=== PATIENT | male | born 1990 | race Caucasian/White ===

== ENCOUNTER 2016-08-12 11:10 | Emergency (ER) | payer OTHER ==
[2016-08-12 11:27] VITALS: TEMP 98
[2016-08-12] MEDS ORDERED: MAGNESIUM HYDROXIDE 30 ML UD PO ONE (12:02)
--- NOTE | 2016-08-12 12:06 | ED.PDOC ---
History of Present Illness - General Chief Complaint: Abdominal Pain Stated Complaint: abd pain Time Seen by Provider: 08/12/16 11:11 Source: patient Exam Limitations: no limitations - History of Present Illness Initial Comments: the patient is a 26-year-old male presenting to the emergency room secondary toperiumbilical abdominal pain that radiates to his left upper quadrant posteriorly. His left flank. No urinary symptoms. No nausea or vomiting. He has had some significant constipation issues recently. No fever. No headache. No sore throat. No shortness of breath or pulmonary symptoms. Timing/Duration: 24 hours Severity: moderate Improving Factors: nothing Worsening Factors: nothing Associated Symptoms: malaise Allergies/Adverse Reactions: Allergies NO KNOWN ALLERGY Allergy (Verified 08/12/16 11:22) Review of Systems - Review of Systems Constitutional: States: no symptoms reported EENTM: States: no symptoms reported Respiratory: States: no symptoms reported Cardiology: States: no symptoms reported Gastrointestinal/Abdominal: States: see HPI Genitourinary: States: no symptoms reported Musculoskeletal: States: no symptoms reported, back pain Skin: States: no symptoms reported Neurological: States: no symptoms reported Endocrine: States: no symptoms reported All other Systems: No Change from Baseline Past Medical History (General) - Patient Medical History Hx Seizures: Yes - 1.5 yrs ago said to be caused by maoi medication Hx Stroke: No Hx Dementia: No Hx Asthma: No Hx of COPD: No Hx Cardiac Disorders: No Hx Congestive Heart Failure: No Hx Pacemaker: No Hx Hypertension: No Hx Thyroid Disease: No Hx Diabetes: No Hx Gastroesophageal Reflux: Yes Hx Renal Disease: No Hx Cancer: No Hx of HIV: No Hx Hepatitis C: No Hx MRSA: No Surgical History: appendectomy - Vaccination History Hx Tetanus, Diphtheria Vaccination: Yes Hx Influenza Vaccination: No Hx Pneumococcal Vaccination: No Immunizations Up to Date: No - Social History Hx Tobacco Use: Yes Hx Alcohol Use: No Hx Substance Use: Yes Hx Substance Use Treatment: No Hx Depression: Yes - Prozac, xanax Hx Physical Abuse: No Hx Emotional Abuse: No Hx Suspected Abuse: No - Female History Patient : No Family Medical History - Family History Mother Family History: Unknown Physical Exam - Physical Exam General Appearance: Alert, Comfortable, No apparent distress Eye Exam: bilateral normal Ears, Nose, Throat: normal ENT inspection, normal pharynx Neck: full range of motion, supple, normal inspection Respiratory: chest non-tender, lungs clear, normal breath sounds, no respiratory distress, no accessory muscle use Cardiovascular/Chest: normal peripheral pulses, regular rate, rhythm, no edema Peripheral Pulses: radial,right: 2+, radial,left: 2+ Gastrointestinal/Abdominal: non tender, soft Rectal Exam: deferred Back Exam: normal inspection, no CVA tenderness, no vertebral tenderness Extremity: normal range of motion, non-tender, normal inspection, no pedal edema , normal capillary refill Neurologic: alert, normal mood/affect, oriented x 3 Skin Exam: normal color Comments: Vital Signs - 24 hr 08/12/16 11:22 Temperature 98.0 F Pulse Rate [ 92 H monitor] Respiratory 20 Rate Blood Pressure 131/83 [LARM] O2 Sat by Pulse 97 Oximetry Progress - Progress Progress: 08/12/16 12:04 the patient is a 26-year-old male presenting with abdominal and back pain. Urinalysis is clear. X-ray is consistent with constipation. He was given a dose of milk of magnesia here. He needs to take MiraLAX daily for the next week and then as needed. He needs to increase his fluid intake. He needs to increase his fiber intake. He needs to be active and move around in order to stimulate his bowel function. He needs to follow up with his primary care doctor towards the end of the week. ER warnings are given for any acute worsening. If the milk of magnesia is not getting him cleaned out then he can take a dose of [place] oil. Departure - Departure Clinical Impression: Constipation Qualifiers: Constipation type: unspecified constipation type Qualifier Code: (K59.00) Constipation, unspecified Disposition: Discharge to Home or Self Care Condition: Fair Departure Forms: ED Discharge - Pt. Copy, Patient Portal Self Enrollment Instructions: DI for Abdominal Pain-Adult Diet: other - high fiber Activity: increase activity as tolerated Referrals: CHAPITO SANABRIA [Primary Care Provider] - 1-2 Weeks Additional Instructions: the patient is a 26-year-old male presenting with abdominal and back pain. Urinalysis is clear. X-ray is consistent with constipation. He was given a dose of milk of magnesia here. He needs to take MiraLAX daily for the next week and then as needed. He needs to increase his fluid intake. He needs to increase his fiber intake. He needs to be active and move around in order to stimulate his bowel function. He needs to follow up with his primary care doctor towards the end of the week. ER warnings are given for any acute worsening. If the milk of magnesia is not getting him cleaned out then he can take a dose of [place] oil.
[2016-08-12 12:25] VITALS: BP 128/76; O2SAT 98
--- NOTE | 2016-08-12 12:30 | RAD ---
EXAM DESCRIPTION: XR ABDOMEN 2 VIEWS SUPINE ERECT CLINICAL HISTORY: abd pain COMPARISON: Chest x-ray August 22, 2011 FINDINGS: AP supine and upright views of the abdomen show a nonspecific, nonobstructive bowel gas pattern with no evidence for free intraperitoneal air. Surgical clips in the right mid abdomen are seen. No air-filled dilated loops of small bowel are seen. No significant air-fluid levels are identified. No obvious organomegaly is seen. No abnormal calcifications are seen in the expected location of the renal collecting systems. Single view of the chest shows cardiac silhouette and pulmonary vasculature to be within normal limits. Lungs are normally aerated and clear. IMPRESSION: Nonspecific abdominal series. Electronically signed by: Sami Mcfadden MD 08/12/2016 12:28
== END 2016-08-12 12:24 | disposition home or self-care (01) ==
LOC: ER 11:10
DX: K59.00 Constipation, unspecified (principal); K21.9 Gastro-esophageal reflux disease without esophagitis; F32.9 Major depressive disorder, single episode, unspecified; Z79.899 Other long term (current) drug therapy; Z87.891 Personal history of nicotine dependence

== ENCOUNTER 2016-08-28 20:02 | Emergency (ER) | payer OTHER ==
[2016-08-28] MEDS ORDERED: predniSONE 20 MG TAB PO ONE (21:19)
[2016-08-28] MEDS ORDERED: KETOROLAC TROMETHAMINE INJ 30 MG/ML VIAL IM ONE (21:19)
[2016-08-28] MEDS ORDERED: CYCLOBENZAPRINE HCL 10 MG TAB PO ONE (21:20)
--- NOTE | 2016-08-28 21:22 | ED.PDOC ---
History of Present Illness - General Chief Complaint: Back Pain or Injury Stated Complaint: mid to lower back pain and spasms Time Seen by Provider: 08/28/16 21:19 Source: patient Exam Limitations: no limitations - History of Present Illness Initial Comments: The patient is a 26-year-old male presenting to the emergency room secondary to upper back pain adjacent to approximately T7 immediately to the left of the spine. He has had intermittent discomfort here over the years. No recent trauma. He woke up this morning with it hurting more than normal. No deformity. No radicular symptoms. No shortness of breath or chest pain otherwise. Timing/Duration: 24 hours Severity: moderate Improving Factors: nothing Worsening Factors: nothing Associated Symptoms: denies symptoms Allergies/Adverse Reactions: Allergies NO KNOWN ALLERGY Allergy (Verified 08/28/16 20:17) Home Medications: Ambulatory Orders Cyclobenzaprine HCl [Flexeril] 5 mg PO TID PRN #30 tab 08/28/16 predniSONE [Prednisone] 20 mg PO DAILY #5 tab 08/28/16 Review of Systems - Review of Systems Constitutional: States: no symptoms reported EENTM: States: no symptoms reported Respiratory: States: no symptoms reported Cardiology: States: no symptoms reported Gastrointestinal/Abdominal: States: no symptoms reported Genitourinary: States: no symptoms reported Musculoskeletal: States: back pain Skin: States: no symptoms reported Neurological: States: no symptoms reported Endocrine: States: no symptoms reported All other Systems: No Change from Baseline Past Medical History (General) - Patient Medical History Hx Seizures: Yes - 1.5 yrs ago said to be caused by maoi medication Hx Stroke: No Hx Dementia: No Hx Asthma: No Hx of COPD: No Hx Cardiac Disorders: No Hx Congestive Heart Failure: No Hx Pacemaker: No Hx Hypertension: No Hx Thyroid Disease: No Hx Diabetes: No Hx Gastroesophageal Reflux: Yes Hx Renal Disease: No Hx Cancer: No Hx of HIV: No Hx Hepatitis C: No Hx MRSA: No Surgical History: appendectomy - Vaccination History Hx Tetanus, Diphtheria Vaccination: Yes Hx Influenza Vaccination: No Hx Pneumococcal Vaccination: No - Social History Hx Tobacco Use: Yes Hx Alcohol Use: No Hx Substance Use: Yes Hx Substance Use Treatment: No Hx Depression: Yes - Prozac, xanax Hx Physical Abuse: No Hx Emotional Abuse: No Hx Suspected Abuse: No - Activities of Daily Living Hospice Agency (if applicable):: None - Female History Patient : No Family Medical History - Family History Mother Family History: Unknown Physical Exam - Physical Exam General Appearance: Alert, Comfortable, No apparent distress Eye Exam: bilateral normal Ears, Nose, Throat: normal ENT inspection, normal pharynx Neck: non-tender, full range of motion, supple Respiratory: chest non-tender, lungs clear, normal breath sounds, no respiratory distress Cardiovascular/Chest: normal peripheral pulses, regular rate, rhythm, no edema Peripheral Pulses: radial,right: 2+, radial,left: 2+ Rectal Exam: deferred Back Exam: no vertebral tenderness, other - see history of present illness. No deformity. There is some muscle spasm. No bruising. No step-off. Extremity: normal range of motion, non-tender, normal inspection, no pedal edema , normal capillary refill Neurologic: no motor/sensory deficits, alert, normal mood/affect, oriented x 3 Skin Exam: normal color Comments: Vital Signs - 24 hr 08/28/16 20:18 Temperature 98.5 F Pulse Rate [ 93 H left] Respiratory 18 Rate Blood Pressure 143/91 [left] O2 Sat by Pulse 100 Oximetry Progress - Progress Progress: 08/28/16 21:22 the patient is a 26-year-old male presenting with paraspinal muscle spasm adjacent to the left side of the spinous process of T6. The patient has had some recurrent discomfort in this area in the past. The patient was given anti-inflammatories in the form of a dose of oral prednisone and IM Toradol. He is given a dose for muscle relaxer in the form of Flexeril. He'll be written for a prescription for oral prednisone and Flexeril for 5 days. ER warnings are given for any acute worsening. A chiropractor may be of some benefit in reducing his chronic discomfort in this area. He needs to follow-up with his primary care doctor in the coming weeks. Topical heat in the form of a heat pad or icy hot or Biofreeze may also prove beneficial. Stretching may also help. Departure - Departure Clinical Impression: Strain of thoracic paraspinal muscles excluding T1 and T2 levels Qualifiers: Encounter type: initial encounter Qualifier Code: (S29.012A) Strain of muscle and tendon of back wall of thorax, initial encounter Disposition: Discharge to Home or Self Care Condition: Fair Departure Forms: ED Discharge - Pt. Copy, Patient Portal Self Enrollment Diet: regular diet Activity: increase activity as tolerated Referrals: Juan Carlos Ayala MD [Primary Care Provider] - 1-2 Weeks Prescriptions: Cyclobenzaprine HCl [Flexeril] 5 mg PO TID PRN #30 tab PRN Reason: Muscle Spasms predniSONE [Prednisone] 20 mg PO DAILY #5 tab Home Medications: Ambulatory Orders Cyclobenzaprine HCl [Flexeril] 5 mg PO TID PRN #30 tab 08/28/16 predniSONE [Prednisone] 20 mg PO DAILY #5 tab 08/28/16 Additional Instructions: the patient is a 26-year-old male presenting with paraspinal muscle spasm adjacent to the left side of the spinous process of T6. The patient has had some recurrent discomfort in this area in the past. The patient was given anti-inflammatories in the form of a dose of oral prednisone and IM Toradol. He is given a dose for muscle relaxer in the form of Flexeril. He'll be written for a prescription for oral prednisone and Flexeril for 5 days. ER warnings are given for any acute worsening. A chiropractor may be of some benefit in reducing his chronic discomfort in this area. He needs to follow-up with his primary care doctor in the coming weeks. Topical heat in the form of a heat pad or icy hot or Biofreeze may also prove beneficial. Stretching may also help.
[2016-08-28 21:54] VITALS: BP 142/81; TEMP 97.9; O2SAT 96
== END 2016-08-28 21:54 | disposition home or self-care (01) ==
LOC: ER 20:02
DX: S29.012A Strain of muscle and tendon of back wall of thorax, initial encounter (principal); K21.9 Gastro-esophageal reflux disease without esophagitis; F32.9 Major depressive disorder, single episode, unspecified; Z87.891 Personal history of nicotine dependence; Z79.899 Other long term (current) drug therapy; X58.XXXA Exposure to other specified factors, initial encounter
CPT/HCPCS: J1885; J7512

== ENCOUNTER 2016-09-07 15:12 | Emergency (ER) | payer OTHER ==
[~2016-09-07 15:12] MED LIST: SORBITOL 70 % 30 ML UD PO ONE
[2016-09-07 15:22] VITALS: TEMP 98
--- NOTE | 2016-09-07 15:23 | ED.PDOC ---
History of Present Illness - General Chief Complaint: General Stated Complaint: accidental OD Time Seen by Provider: 09/07/16 15:20 Source: patient, RN notes reviewed, Vital Signs reviewed Exam Limitations: no limitations Additional Information: Pt reports he took 4 of his 's Bystolic 10 mg tabs thinking it was motrin since the bottle looked similar to his bottle of motrin. He reports feeling a little tired and "off" since taking this medicine. He denies taking any other medicine/drugs/substances to include alcohol. - History of Present Illness Timing/Duration: other - about 15 minutes prior to arrival Improving Factors: nothing Worsening Factors: nothing Associated Symptoms: weakness Allergies/Adverse Reactions: Allergies NO KNOWN ALLERGY Allergy (Verified 08/28/16 20:17) Home Medications: Ambulatory Orders Cyclobenzaprine HCl [Flexeril] 5 mg PO TID PRN #30 tab 08/28/16 Review of Systems - Review of Systems Constitutional: States: weakness EENTM: States: no symptoms reported Respiratory: States: no symptoms reported Cardiology: States: no symptoms reported Gastrointestinal/Abdominal: States: no symptoms reported Genitourinary: States: no symptoms reported Musculoskeletal: States: no symptoms reported Skin: States: no symptoms reported Neurological: States: weakness Endocrine: States: no symptoms reported Hematologic/Lymphatic: States: no symptoms reported Past Medical History (General) - Patient Medical History Hx Seizures: Yes - 1.5 yrs ago said to be caused by maoi medication Hx Stroke: No Hx Dementia: No Hx Asthma: No Hx of COPD: No Hx Cardiac Disorders: No Hx Congestive Heart Failure: No Hx Pacemaker: No Hx Hypertension: No Hx Thyroid Disease: No Hx Diabetes: No Hx Gastroesophageal Reflux: Yes Hx Renal Disease: No Hx Cancer: No Hx of HIV: No Hx Hepatitis C: No Hx MRSA: No Surgical History: appendectomy - Vaccination History Hx Tetanus, Diphtheria Vaccination: Yes Hx Influenza Vaccination: No Hx Pneumococcal Vaccination: No - Social History Hx Tobacco Use: Yes Hx Alcohol Use: No Hx Substance Use: Yes Hx Substance Use Treatment: No Hx Depression: Yes - Prozac, xanax Hx Physical Abuse: No Hx Emotional Abuse: No Hx Suspected Abuse: No - Female History Patient : No Family Medical History - Family History Mother Family History: Unknown Physical Exam - Physical Exam General Appearance: Alert, Comfortable, No apparent distress, Well Developed, Well Groomed, Well Hydrated, Well Nourished Eye Exam: bilateral normal Ears, Nose, Throat: hearing grossly normal, normal ENT inspection, normal pharynx Neck: non-tender, full range of motion, supple, normal inspection Respiratory: normal breath sounds, no respiratory distress, no accessory muscle use Cardiovascular/Chest: regular rate, rhythm Gastrointestinal/Abdominal: non tender, soft Back Exam: normal inspection Extremity: normal range of motion, non-tender, normal inspection Neurologic: manager french II-XII nml as tested, no motor/sensory deficits, alert, normal mood/affect, oriented x 3 Skin Exam: normal color Progress - Progress Progress: 09/07/16 15:50 Per guidance from poison control, Pt prescribed activated charcoal and observed. Pt expected to tolerate this well given the reported dosage and quantity ingested is within the usual prescribed dose range. 09/07/16 16:26 No deleterious effects seen during observation. Pt tolerated charcoal well. Pt ok to be discharged home with strict return precautions. Departure - Departure Clinical Impression: Accidental drug ingestion Qualifiers: Encounter type: initial encounter Qualifier Code: (T50.901A) Poisoning by unspecified drugs, medicaments and biological substances, accidental ( unintentional), initial encounter Time of Disposition: 16:30 Disposition: Discharge to Home or Self Care Condition: Good Departure Forms: ED Discharge - Pt. Copy, Patient Portal Self Enrollment Instructions: DI for Accidental Ingestion -- Adult Referrals: Juan Carlos Ayala MD [Primary Care Provider] - 1-2 Weeks Home Medications: Ambulatory Orders Cyclobenzaprine HCl [Flexeril] 5 mg PO TID PRN #30 tab 08/28/16 Additional Instructions: Rest for rest of the day. Stay well hydrated. Return to ER if condition worsens. Expect dark stools due to the charcoal.
[2016-09-07] MEDS ORDERED: ACTIVATED CHARCOAL PELLETS 25 GM BTTL PO ONE (15:40)
[2016-09-07] MEDS ORDERED: SORBITOL 70 % 30 ML UD ONE (15:42)
[2016-09-07 16:48] VITALS: BP 121/80; O2SAT 97
== END 2016-09-07 16:47 | disposition home or self-care (01) ==
LOC: ER 15:12
DX: T44.7X1A Poisoning by beta-adrenoreceptor antagonists, accidental (unintentional), initial encounter (principal); R53.1 Weakness; K21.9 Gastro-esophageal reflux disease without esophagitis; Z87.891 Personal history of nicotine dependence

== ENCOUNTER 2016-09-07 18:28 | Emergency (ER) | payer OTHER ==
[2016-09-07] MEDS ORDERED: diazePAM 5 MG TAB PO ONE (18:34)
--- NOTE | 2016-09-07 18:58 | ED.PDOC ---
History of Present Illness - General Chief Complaint: Laceration Stated Complaint: right hand laceration Time Seen by Provider: 09/07/16 18:34 Source: patient, family Exam Limitations: no limitations Additional Information: Seen earlier today for alleged accidental ingestion of his 's 4 beta- elizabet tablets. He was given activated charcoal, observed and discharged home. When he was home he supposedly got upset and punched the microwave leading to lacerations of his right hand. Pt agitated, tearful, and anxious at the time of check-in. He presented with his . - History of Present Illness Occurred: just prior to arrival Pain - Upper Extremity: moderate: Hand, right - punched microwave; lacerations to 3rd, 4th, 5th knuckles Method of Injury: direct blow Improving Factors: nothing Worsening Factors: rest Allergies/Adverse Reactions: Allergies NO KNOWN ALLERGY Allergy (Verified 08/28/16 20:17) Home Medications: Ambulatory Orders None 09/07/16 Review of Systems - Review of Systems Constitutional: States: no symptoms reported EENTM: States: no symptoms reported Respiratory: States: no symptoms reported Cardiology: States: no symptoms reported Gastrointestinal/Abdominal: States: no symptoms reported Genitourinary: States: no symptoms reported Musculoskeletal: States: see HPI Skin: States: see HPI - lacerations to right hand knuckles dorsal surface Neurological: States: no symptoms reported Endocrine: States: no symptoms reported Hematologic/Lymphatic: States: no symptoms reported Past Medical History (General) - Patient Medical History Hx Seizures: Yes - 1.5 yrs ago said to be caused by maoi medication Hx Stroke: No Hx Dementia: No Hx Asthma: No Hx of COPD: No Hx Cardiac Disorders: No Hx Congestive Heart Failure: No Hx Pacemaker: No Hx Hypertension: No Hx Thyroid Disease: No Hx Diabetes: No Hx Gastroesophageal Reflux: Yes Hx Renal Disease: No Hx Cancer: No Hx of HIV: No Hx Hepatitis C: No Hx MRSA: No - Vaccination History Hx Tetanus, Diphtheria Vaccination: Yes Hx Influenza Vaccination: No Hx Pneumococcal Vaccination: No - Social History Hx Tobacco Use: Yes Hx Alcohol Use: No Hx Substance Use: Yes Hx Substance Use Treatment: No Hx Depression: Yes - Prozac, xanax Hx Physical Abuse: No Hx Emotional Abuse: No Hx Suspected Abuse: No - Female History Patient : No Family Medical History - Family History Mother Family History: Unknown Physical Exam - Physical Exam General Appearance: Anxious - improved after Valium 5 mg po x 1, Well Developed , Well Groomed, Well Hydrated, Well Nourished Eyes, Ears, Nose, Throat Exam: PERRL/EOMI Neck: non-tender, full range of motion, supple Cardiovascular/Respiratory: normal peripheral pulses, normal breath sounds, no respiratory distress Back Exam: normal inspection Wrist Exam: normal inspection, non-tender, no evidence of injury, normal ROM Hand Exam: laceration, soft tissue tenderness - at site of lacerations Neuro/Tendon: normal sensation, normal motor functions, responds to pain, no evidence tendon injury Mental Status: alert, oriented x 3 Skin Exam: other - 3 wounds to dorsal surface of right hand located at 3rd, 4th , 5th knuckles Progress - Progress Progress: 09/07/16 21:35 Wound soaked and irrigated as well as local anesthesia provided. See laceration note for details. In summary, 4th knuckle avulsion reapproximated. 3rd and 5th knuckle wounds complex and unable to be reapproximated - will heal by secondary intention. Pt ok to be discharged home with strict follow-up precautions given. Procedures - Laceration/Wound Repair Right Posterior Dorsal Hand Wound's Depth, Shape: irregular, flap Wound Explored: foreign body removed - fragments of glass Irrigated w/ Saline (cc's): 250 Betadine Prep?: Yes Anesthesia: 1% Lidocaine Volume Anesthetic (cc's): 12 Wound Debrided: moderate Wound Repaired With: sutures Suture Size/Type: 5:0, vicryl rapide - for lesion over 4th knuckle Number of Sutures: 5 - interrupted Departure - Departure Clinical Impression: Laceration of hand Qualifiers: Encounter type: initial encounter Laterality: right Qualifier Code: (S61.411A) Laceration without foreign body of right hand, initial encounter Time of Disposition: 21:10 Disposition: Discharge to Home or Self Care Condition: Good Instructions: DI for Avulsion Laceration (Not Requiring Sutures) Home Medications: Ambulatory Orders None 09/07/16 Additional Instructions: Keep wound clean and dry. Soak in warm soapy water for 5 to 10 minutes three times a day. Apply antibiotic ointment to wounds and cover with band-aid. Keep wounds clean and dry. Return to ER if condition worsens. No work for 48 hours.
[2016-09-07] MEDS ORDERED: POVIDONE IODINE 10 % 15 ML UD TOP ONE ×2 (19:01→20:09)
[2016-09-07] MEDS ORDERED: LIDOCAINE 1% W/ EPINEPHRINE 20 ML VIAL INJ ONE (19:49)
--- NOTE | 2016-09-07 19:57 | RAD ---
EXAM DESCRIPTION: Hand,Right 2 Views CLINICAL HISTORY: 26 years, Male, punched a microwave. Laceration over dorsal hand. COMPARISON: None. FINDINGS: There is no acute fracture or dislocation. The bony alignment is normal. There is a soft tissue laceration along the dorsal aspect of the metacarpophalangeal joints. There are at least three retained opaque foreign bodies measuring up to 4 mm in diameter embedded in the region of the third and fourth MCP joints are The distal radius/ ulna, carpal, metacarpal, and phalangeal bones are normal in appearance. The intercarpal, carpometacarpal, metacarpophalangeal, and interphalangeal joints are normal in appearance. IMPRESSION: 1. Dorsal soft tissue laceration with multiple retained opaque foreign bodies overlying the third and fourth MCP joints. 2. Otherwise no acute fracture or dislocation. Electronically signed by: Padma Gaitan MD 09/07/2016 7:56 PM [employer]
[2016-09-07] MEDS ORDERED: NEOMYCIN-BACITRACIN-POLYMYXIN 0.9 GM UD TOP ONE (21:06)
--- NOTE | 2016-09-07 21:11 | RAD ---
EXAM DESCRIPTION: Hand,Right 3 Views CLINICAL HISTORY: 26 years, Male, repeat x-ray after irrigation COMPARISON: Three views of the right hand September 07, 2016. FINDINGS: There is no acute fracture or dislocation. The bony alignment is normal. There is soft tissue swelling overlying the dorsal aspect of the hand. There are residual retained opaque foreign bodies overlying the third and fifth MCP joints best appreciated on the oblique and lateral views. The radiodense foreign bodies in the region of the fourth MCP joint are not well visualized on the current exam. The distal radius/ ulna, carpal, metacarpal, and phalangeal bones are normal in appearance. The intercarpal, carpometacarpal, metacarpophalangeal, and interphalangeal joints are normal in appearance. IMPRESSION: 1. Residual retained opaque foreign bodies along the dorsal aspect of the third and fifth MCP joints. 2. Previously noted foreign bodies at the fourth MCP joint cannot well-visualized. 3. Soft tissue swelling. 4. No acute fracture or dislocation. Electronically signed by: Padma Gaitan MD 09/07/2016 9:10 PM [employer]
[2016-09-07 21:18] VITALS: BP 116/78; TEMP 98.3; O2SAT 100
== END 2016-09-07 21:17 | disposition home or self-care (01) ==
LOC: ER 18:28
DX: S61.421A Laceration with foreign body of right hand, initial encounter (principal); K21.9 Gastro-esophageal reflux disease without esophagitis; F32.9 Major depressive disorder, single episode, unspecified; Z87.891 Personal history of nicotine dependence; Z79.899 Other long term (current) drug therapy; W22.09XA Striking against other stationary object, initial encounter; Y92.009 Unspecified place in unspecified non-institutional (private) residence as the place of occurrence of the external cause

== ENCOUNTER 2016-09-08 13:59 | Emergency (ER) | payer OTHER ==
--- NOTE | 2016-09-08 14:47 | ED.PDOC ---
History of Present Illness - General Chief Complaint: General Stated Complaint: pain right hand Time Seen by Provider: 09/08/16 14:29 Source: patient Exam Limitations: no limitations - History of Present Illness Initial Comments: Darrel Isaac 26 y/o male with no medical problem stated that he continued to have pain on right hand since it had been stitched last night.He stated punched his microwave at home and came for treatment for laceration advised to take (otc )NSAIDS for pain.X-ray studies done on his hand did not show fracture. Occurred: yesterday Pain - Upper Extremity: severe: Hand, right Method of Injury: direct blow, other - punched microwave Improving Factors: rest Allergies/Adverse Reactions: Allergies NO KNOWN ALLERGY Allergy (Verified 08/28/16 20:17) Home Medications: Ambulatory Orders Gabapentin 300 mg PO BID #14 cap 09/08/16 Tramadol HCl 100 mg PO TID PRN #14 tab 09/08/16 Review of Systems - Review of Systems Constitutional: States: no symptoms reported EENTM: States: no symptoms reported Respiratory: States: no symptoms reported Cardiology: States: no symptoms reported Gastrointestinal/Abdominal: States: no symptoms reported Genitourinary: States: no symptoms reported Musculoskeletal: States: see HPI, back pain - chronic, other Skin: States: other - laceration repair Neurological: States: no symptoms reported Endocrine: States: no symptoms reported Hematologic/Lymphatic: States: no symptoms reported Past Medical History (General) - Patient Medical History Hx Seizures: Yes - 1.5 yrs ago said to be caused by maoi medication Hx Stroke: No Hx Dementia: No Hx Asthma: No Hx of COPD: No Hx Cardiac Disorders: No Hx Congestive Heart Failure: No Hx Pacemaker: No Hx Hypertension: No Hx Thyroid Disease: No Hx Diabetes: No Hx Gastroesophageal Reflux: Yes Hx Renal Disease: No Hx Cancer: No Hx of HIV: No Hx Hepatitis C: No Hx MRSA: No Surgical History: appendectomy - Vaccination History Hx Tetanus, Diphtheria Vaccination: Yes Hx Influenza Vaccination: No Hx Pneumococcal Vaccination: No - Social History Hx Tobacco Use: Yes Hx Alcohol Use: No Hx Substance Use: Yes Hx Substance Use Treatment: No Hx Depression: Yes - Prozac, xanax Hx Physical Abuse: No Hx Emotional Abuse: No Hx Suspected Abuse: No - Activities of Daily Living Patient Lives Alone: No - family - Female History Patient : No Family Medical History - Family History Mother Family History: No Known Physical Exam - Physical Exam General Appearance: Alert, Anxious, No apparent distress Eyes, Ears, Nose, Throat Exam: PERRL/EOMI, normal ENT inspection, TMs normal Neck: non-tender, full range of motion, supple Cardiovascular/Respiratory: regular rate, rhythm, no M/R/G, normal peripheral pulses, no JVD Abdominal Exam: non-tender, no organomegaly, no hernia Back Exam: normal inspection, no CVA tenderness, no vertebral tenderness Shoulder Exam: normal inspection, non-tender, no evidence of injury Elbow/Forearm Exam: normal inspection, non-tender, no evidence of injury Wrist Exam: normal inspection, non-tender, no evidence of injury Hand Exam: laceration - repaired no active bleeding Neuro/Tendon: normal sensation, normal motor functions, normal tendon functions , responds to pain, no evidence tendon injury Mental Status: alert, oriented x 3 Skin Exam: normal color Progress - Results/Orders Results/Orders: Application of ortho glass splint by md for immobilization and pain reduction. Departure - Departure Clinical Impression: Pain, hand Qualifiers: Laterality: right Qualifier Code: (M79.641) Pain in right hand Contusion Qualifiers: Encounter type: subsequent encounter Time of Disposition: 14:54 Disposition: Discharge to Home or Self Care Condition: Good Departure Forms: ED Discharge - Pt. Copy, Patient Portal Self Enrollment Instructions: DI for Contusion Prescriptions: Gabapentin 300 mg PO BID #14 cap Tramadol HCl 100 mg PO TID PRN #14 tab PRN Reason: Pain Home Medications: Ambulatory Orders Gabapentin 300 mg PO BID #14 cap 09/08/16 Tramadol HCl 100 mg PO TID PRN #14 tab 09/08/16 Additional Instructions: EXCUSE FROM WORK 09/09- injured right hand Return to WORK 09/12/16; ELEVATE RIGHT FOREARM 20 degrees at bedtime until better;REMOVE HAND SPLINT
[2016-09-08] MEDS ORDERED: KETOROLAC TROMETHAMINE INJ 30 MG/ML VIAL IM ONE (14:55)
[2016-09-08 15:08] VITALS: O2SAT 100
[2016-09-08 15:49] VITALS: BP 116/69; TEMP 98.6
== END 2016-09-08 15:30 | disposition home or self-care (01) ==
LOC: ER 13:59
DX: M79.641 Pain in right hand (principal); K21.9 Gastro-esophageal reflux disease without esophagitis; F32.9 Major depressive disorder, single episode, unspecified; Z87.891 Personal history of nicotine dependence; Z79.899 Other long term (current) drug therapy

== ENCOUNTER 2016-09-28 22:34 | Emergency (ER) | payer OTHER ==
[2016-09-28 22:58] VITALS: O2SAT 99
--- NOTE | 2016-09-28 23:06 | ED.PDOC ---
History of Present Illness - General Chief Complaint: GI Problem Stated Complaint: fevers, n/v/d, cramping Time Seen by Provider: 09/28/16 23:03 Source: patient, RN notes reviewed, Vital Signs reviewed Exam Limitations: no limitations - History of Present Illness Initial Comments: Patient is a 26 y/o male who has had fever, nausea, vomiting and abdominal pain for the past 3 days. The vomiting started yesterday. Patient has thrown up about 4 times in the last 24 hours. He also has some diarrhea. His fever has been up to 102.0. The pain is a crampy pain, moderate. Timing/Duration: other - 3 days Severity: moderate Improving Factors: medication - DayQuill helps with the fever for about 2 hours. Worsening Factors: nothing Associated Symptoms: cough, fever/chills, nausea/vomiting Allergies/Adverse Reactions: Allergies NO KNOWN ALLERGY Allergy (Verified 08/28/16 20:17) Home Medications: Ambulatory Orders Ondansetron [Zofran Odt] 4 mg PO Q8H PRN #10 tab 09/29/16 Review of Systems - Review of Systems Constitutional: States: chills, fever, malaise EENTM: States: no symptoms reported Respiratory: States: cough Cardiology: States: no symptoms reported Gastrointestinal/Abdominal: States: abdominal pain, diarrhea, nausea, vomiting Genitourinary: States: dysuria Musculoskeletal: States: back pain, muscle pain Skin: States: no symptoms reported Neurological: States: headache. Denies: numbness, tingling Endocrine: States: no symptoms reported Hematologic/Lymphatic: States: easy bruising All other Systems: Reviewed and Negative Past Medical History (General) - Patient Medical History Hx Seizures: Yes - 1.5 yrs ago said to be caused by maoi medication Hx Stroke: No Hx Dementia: No Hx Asthma: No Hx of COPD: No Hx Cardiac Disorders: No Hx Congestive Heart Failure: No Hx Pacemaker: No Hx Hypertension: No Hx Thyroid Disease: No Hx Diabetes: No Hx Gastroesophageal Reflux: Yes Hx Renal Disease: No Hx Cancer: No Hx of HIV: No Hx Hepatitis C: No Hx MRSA: No - Vaccination History Hx Tetanus, Diphtheria Vaccination: Yes Hx Influenza Vaccination: No Hx Pneumococcal Vaccination: No - Social History Hx Tobacco Use: Yes Hx Chewing Tobacco Use: No Hx Alcohol Use: No Hx Substance Use: Yes Hx Substance Use Treatment: No Hx Depression: Yes - Prozac, xanax Hx Physical Abuse: No Hx Emotional Abuse: No Hx Suspected Abuse: No - Female History Patient : No Family Medical History - Family History Mother Family History: No Known Physical Exam - Physical Exam General Appearance: Alert, No apparent distress, Ill Appearing Eye Exam: bilateral normal Ears, Nose, Throat: hearing grossly normal, normal ENT inspection, pharyngeal erythema Neck: full range of motion Respiratory: lungs clear, normal breath sounds, no respiratory distress, no accessory muscle use Cardiovascular/Chest: regular rate, rhythm, no edema, no gallop, no murmur Gastrointestinal/Abdominal: non tender, soft, no organomegaly, abnormal bowel sounds - hyperactive Extremity: normal range of motion, normal inspection Neurologic: alert, normal mood/affect, oriented x 3 Skin Exam: normal color, warm/dry Progress - Results/Orders Results/Orders: 09/28/16 22:49 Temperature 98.4 F Pulse Rate [ 80 left] Respiratory 18 Rate Blood Pressure 142/87 [left] O2 Sat by Pulse 99 Oximetry 09/28/16 23:20 STREP A SCREEN CULTURE Stat Laboratory Results WBC 9.6 K/mm3 (4.8-10.8) 09/28/16 23:15 RBC 4.74 M/mm3 (4.70-6.10) 09/28/16 23:15 Hgb 13.8 gm/dL (14.0-18.0) L 09/28/16 23:15 Hct 41.2 % (42.0-52.0) L 09/28/16 23:15 MCV 86.7 fl (80.0-94.0) 09/28/16 23:15 MCH 29.1 pg (27.0-31.0) 09/28/16 23:15 MCHC 33.6 g/dL (33.0-37.0) 09/28/16 23:15 RDW 13.5 % (11.5-14.5) 09/28/16 23:15 Plt Count 264 K/mm3 (130-400) 09/28/16 23:15 MPV 8.4 fl (7.40-10.4) 09/28/16 23:15 Absolute Neuts (auto) 5.70 K/uL (1.8-6.8) 09/28/16 23:15 Absolute Lymphs (auto) 3.20 K/uL (1.0-3.4) 09/28/16 23:15 Absolute Monos (auto) 0.50 K/uL (0.2-0.8) 09/28/16 23:15 Absolute Eos (auto) 0.20 K/uL (0.0-0.4) 09/28/16 23:15 Absolute Basos (auto) 0.00 K/uL (0.0-0.1) 09/28/16 23:15 Neutrophils % 59.2 % (42.0-78.0) 09/28/16 23:15 Lymphocytes % 33.8 % (20.0-50.0) 09/28/16 23:15 Monocytes % 4.8 % (2.0-9.0) 09/28/16 23:15 Eosinophils % 1.7 % (1.0-5.0) 09/28/16 23:15 Basophils % 0.5 % (0.0-2.0) 09/28/16 23:15 Sodium 140 mmol/L (135-145) 09/28/16 23:15 Potassium 3.9 mmol/L (3.6-5.0) 09/28/16 23:15 Chloride 108 mmol/L (101-111) 09/28/16 23:15 Carbon Dioxide 27 mmol/L (21-31) 09/28/16 23:15 Anion Gap 8.9 (12-18) L 09/28/16 23:15 BUN 14 mg/dL (7-18) 09/28/16 23:15 Creatinine 0.79 mg/dL (0.6-1.3) 09/28/16 23:15 BUN/Creatinine Ratio 17.7 (10-20) 09/28/16 23:15 Random Glucose 95 mg/dL (70-105) 09/28/16 23:15 Serum Osmolality 279.7 mOsm/L (275-295) 09/28/16 23:15 Calcium 9.1 mg/dL (8.4-10.2) 09/28/16 23:15 Total Bilirubin 0.4 mg/dL (0.2-1.0) 09/28/16 23:15 AST 20 IU/L (10-42) 09/28/16 23:15 ALT 22 IU/L (10-60) 09/28/16 23:15 Alkaline Phosphatase 73 IU/L (42-121) 09/28/16 23:15 Serum Total Protein 7.0 gm/dL (6.4-8.2) 09/28/16 23:15 Albumin 4.5 g/dl (3.2-5.5) 09/28/16 23:15 Globulin 2.5 gm/dL (2.3-3.5) 09/28/16 23:15 Albumin/Globulin Ratio 1.8 (1.1-1.9) 09/28/16 23:15 Urine Color Yellow (Yellow) 09/28/16 23:33 Urine Appearance Clear (Clear) 09/28/16 23:33 Urine pH 7.5 (4.5-7.8) 09/28/16 23:33 Ur Specific [place] 1.020 (1.005-1.030) 09/28/16 23:33 Urine Protein Negative mg/dL 09/28/16 23:33 Urine Glucose (UA) Negative mg/dL (Negative) 09/28/16 23:33 Urine Ketones Negative mg/dL (NEGATIVE) 09/28/16 23:33 Urine Blood Negative (Negative) 09/28/16 23:33 Urine Nitrite Negative 09/28/16 23:33 Urine Bilirubin Negative (NEGATIVE) 09/28/16 23:33 Urine Urobilinogen 0.2 mg/dL (0.2-1.0) 09/28/16 23:33 Ur Leukocyte Esterase Negative (Negative) 09/28/16 23:33 Urine RBC 0 /hpf 09/28/16 23:33 Urine WBC 0-1 /hpf 09/28/16 23:33 Ur Epithelial Cells 0 /hpf 09/28/16 23:33 Amorphous Sediment Trace 09/28/16 23:33 Urine Bacteria Rare 09/28/16 23:33 Urine Mucus Trace 09/28/16 23:33 Group A Strep DNA Negative (NEGATIVE) 09/28/16 23:20 Departure - Departure Clinical Impression: Gastroenteritis Time of Disposition: :13 Disposition: Discharge to Home or Self Care Condition: Fair Departure Forms: ED Discharge - Pt. Copy, Patient Portal Self Enrollment Instructions: DI for Viral Gastroenteritis -- Adult, Gastroenteritis Diet, Viral Gastroenteritis Diet: bland diet, other - Stay well-hydrated Prescriptions: Ondansetron [Zofran Odt] 4 mg PO Q8H PRN #10 tab PRN Reason: Nausea/Vomiting Home Medications: Ambulatory Orders Ondansetron [Zofran Odt] 4 mg PO Q8H PRN #10 tab 09/29/16 Additional Instructions: Follow up in ED if symptoms persist or worsen.
[2016-09-29 01:43] VITALS: BP 130/75; TEMP 99.2
== END 2016-09-29 01:25 | disposition home or self-care (01) ==
LOC: ER 22:34
DX: K52.9 Noninfective gastroenteritis and colitis, unspecified (principal); F32.9 Major depressive disorder, single episode, unspecified; K21.9 Gastro-esophageal reflux disease without esophagitis; Z87.898 Personal history of other specified conditions; Z87.891 Personal history of nicotine dependence; Z79.899 Other long term (current) drug therapy

== ENCOUNTER 2016-10-29 21:32 | Emergency (ER) | payer OTHER ==
[2016-10-29 21:58] VITALS: O2SAT 98
[2016-10-29] MEDS ORDERED: ACETAMINOPHEN 500 MG TAB PO ONE (21:58)
[2016-10-29] MEDS ORDERED: CLINDAMYCIN IV 600MG 600 MG in PREMIX BAG 1 BAG IVPB ONE (22:42)
--- NOTE | 2016-10-29 22:46 | ED.PDOC ---
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 He took two ibuprofen, however that did not seem to help. He has had a sore throat for two days. Since he has a daughter at home, he wanted to be sure that what he has is not contagious. He has a headache and is nauseous. Timing/Duration: this evening Fever Severity/Quality: greater than 102 F Fever Therapy SOCIAL INSURANCE ADVISER: Ibuprofen Associated Symptoms: headache, nausea/vomiting, sore throat Review of Systems - Review of Systems Constitutional: States: chills, fever, malaise EENTM: States: throat pain, throat swelling Respiratory: States: no symptoms reported Cardiology: States: no symptoms reported Gastrointestinal/Abdominal: States: nausea Genitourinary: States: no symptoms reported Musculoskeletal: States: muscle pain Skin: States: no symptoms reported Neurological: States: headache Endocrine: States: no symptoms reported Hematologic/Lymphatic: States: no symptoms reported All other Systems: Reviewed and Negative Past Medical History (General) - Patient Medical History Hx Seizures: Yes - 1.5 yrs ago said to be caused by maoi medication Hx Stroke: No Hx Dementia: No Hx Asthma: No Hx of COPD: No Hx Cardiac Disorders: No Hx Congestive Heart Failure: No Hx Pacemaker: No Hx Hypertension: No Hx Thyroid Disease: No Hx Diabetes: No Hx Gastroesophageal Reflux: Yes Hx Renal Disease: No Hx Cancer: No Hx of HIV: No Hx Hepatitis C: No Hx MRSA: No Surgical History: appendectomy - Vaccination History Hx Tetanus, Diphtheria Vaccination: Yes Hx Influenza Vaccination: No Hx Pneumococcal Vaccination: No - Social History Hx Tobacco Use: Yes Hx Chewing Tobacco Use: No Hx Alcohol Use: No Hx Substance Use: Yes Hx Substance Use Treatment: No Hx Depression: Yes - Prozac, xanax Hx Physical Abuse: No Hx Emotional Abuse: No Hx Suspected Abuse: No - Female History Patient : No Family Medical History - Family History Mother Family History: No Known Physical Exam - Physical Exam General Appearance: Alert, Obvious distress, Ill Appearing Eye Exam: bilateral normal ENT Exam: hearing grossly normal, TMs normal, tonsillar exudate - Right, other - Peritonsillar abscess--with erythema and swelling. No pharyngeal obstruction. Neck: supple, lymphadenopathy (R), tender lateral - anteral Respiratory: lungs clear, normal breath sounds, no respiratory distress, no accessory muscle use Cardiovascular/Chest: no edema, no gallop, no murmur Gastrointestinal/Abdominal: normal bowel sounds, non tender, soft, no organomegaly Extremity: normal range of motion, non-tender, normal inspection, no pedal edema Neurologic: alert, normal mood/affect, oriented x 3 Skin Exam: normal color, other - hot to touch Progress - Results/Orders Results/Orders: 10/29/16 10/29/16 21:47 22:58 Temperature 103.2 F H 101.7 F H Pulse Rate [ 129 H 111 H left] Respiratory 16 16 Rate Blood Pressure 136/90 137/84 [left] O2 Sat by Pulse 98 98 Oximetry Strep - Negative 10/29/16 21:50 STREP A SCREEN CULTURE Stat 10/29/16 22:42 Clindamycin IV 600Mg [Cleocin IV 600mg] 600 mg Premix Bag 1 bag IVPB ONCE 10/29/16 22:57 BLOOD CULTURE Stat Laboratory Results WBC 15.3 K/mm3 (4.8-10.8) H 10/29/16 22:45 RBC 4.75 M/mm3 (4.70-6.10) 10/29/16 22:45 Hgb 13.7 gm/dL (14.0-18.0) L 10/29/16 22:45 Hct 40.8 % (42.0-52.0) L 10/29/16 22:45 MCV 85.9 fl (80.0-94.0) 10/29/16 22:45 MCH 28.8 pg (27.0-31.0) 10/29/16 22:45 MCHC 33.7 g/dL (33.0-37.0) 10/29/16 22:45 RDW 13.1 % (11.5-14.5) 10/29/16 22:45 Plt Count 221 K/mm3 (130-400) 10/29/16 22:45 MPV 8.6 fl (7.40-10.4) 10/29/16 22:45 Absolute Neuts (auto) 12.70 K/uL (1.8-6.8) H 10/29/16 22:45 Absolute Lymphs (auto) 1.30 K/uL (1.0-3.4) 10/29/16 22:45 Absolute Monos (auto) 1.20 K/uL (0.2-0.8) H 10/29/16 22:45 Absolute Eos (auto) 0.10 K/uL (0.0-0.4) 10/29/16 22:45 Absolute Basos (auto) 0.10 K/uL (0.0-0.1) 10/29/16 22:45 Neutrophils % 83.3 % (42.0-78.0) H 10/29/16 22:45 Lymphocytes % 8.4 % (20.0-50.0) L 10/29/16 22:45 Monocytes % 7.6 % (2.0-9.0) 10/29/16 22:45 Eosinophils % 0.4 % (1.0-5.0) L 10/29/16 22:45 Basophils % 0.3 % (0.0-2.0) 10/29/16 22:45 Sodium 139 mmol/L (135-145) 10/29/16 22:45 Potassium 3.9 mmol/L (3.6-5.0) 10/29/16 22:45 Chloride 108 mmol/L (101-111) 10/29/16 22:45 Carbon Dioxide 24 mmol/L (21-31) 10/29/16 22:45 Anion Gap 10.9 (12-18) L 10/29/16 22:45 BUN 8 mg/dL (7-18) 10/29/16 22:45 Creatinine 0.84 mg/dL (0.6-1.3) 10/29/16 22:45 BUN/Creatinine Ratio 9.5 (10-20) L 10/29/16 22:45 Random Glucose 109 mg/dL (70-105) H 10/29/16 22:45 Serum Osmolality 276.5 mOsm/L (275-295) 10/29/16 22:45 Calcium 8.6 mg/dL (8.4-10.2) 10/29/16 22:45 Total Bilirubin 0.4 mg/dL (0.2-1.0) 10/29/16 22:45 AST 50 IU/L (10-42) H 10/29/16 22:45 ALT 48 IU/L (10-60) 10/29/16 22:45 Alkaline Phosphatase 81 IU/L (42-121) 10/29/16 22:45 Serum Total Protein 6.5 gm/dL (6.4-8.2) 10/29/16 22:45 Albumin 3.6 g/dl (3.2-5.5) 10/29/16 22:45 Globulin 2.9 gm/dL (2.3-3.5) 10/29/16 22:45 Albumin/Globulin Ratio 1.2 (1.1-1.9) 10/29/16 22:45 Group A Strep DNA Negative (NEGATIVE) 10/29/16 21:50 Departure - Departure Clinical Impression: Peritonsillar abscess Fever Qualifiers: Fever type: other Qualified Code(s): R50.81 - Fever presenting with conditions classified elsewhere Time of Disposition: 10:41 Disposition: Transfer to Hospital Home Medications: Ambulatory Orders Ondansetron [Zofran Odt] 4 mg PO Q8H PRN #10 tab 09/29/16 Transfer to Outside Facility - Transfer Information Accepting Provider:: Andrei Tillman M.D. Accepting Facility: [facility] Reason for Transfer: required specialist not available - ENT
[2016-10-29] MEDS ORDERED: CLINDAMYCIN IV 600MG 50 ML IVPB ONE (22:47)
[2016-10-29 23:19] VITALS: BP 139/88; TEMP 101.4
== END 2016-10-29 23:19 | disposition short-term general hospital (02) ==
LOC: ER 21:32
DX: J36 Peritonsillar abscess (principal); R50.81 Fever presenting with conditions classified elsewhere; Z87.891 Personal history of nicotine dependence; K21.9 Gastro-esophageal reflux disease without esophagitis; F32.9 Major depressive disorder, single episode, unspecified; Z79.899 Other long term (current) drug therapy
CPT/HCPCS: 36415; 80053; 85025; 87040; 87070; 87651; J3490

== ENCOUNTER 2016-12-03 21:13 | Emergency (ER) | payer OTHER ==
[2016-12-03 21:25] VITALS: O2SAT 98
--- NOTE | 2016-12-03 21:33 | ED.PDOC ---
History of Present Illness - General Chief Complaint: Problem Stated Complaint: left flank pain, unable to void Time Seen by Provider: 12/03/16 21:28 Source: patient Exam Limitations: no limitations - History of Present Illness Initial Comments: PT REPORTS SUDDEN ONSET OF LEFT SIDED FLANK PAIN AND LLQ ABD PAIN THAT BEGAN JUST PRIOR TO ARRIVAL. PT REPORTS HISTORY OF RENAL STONES AND STATES THAT PAIN IS SIMILAR TO PREVIOUS EPISODES. PT REPORTS NAUSEA, DENIES, VOMITING OR FEVER. Severity: severe Improving Factors: nothing Worsening Factors: nothing Associated Symptoms: nausea/vomiting Allergies/Adverse Reactions: Allergies NO KNOWN ALLERGY Allergy (Verified 12/03/16 21:20) Home Medications: Ambulatory Orders Acetaminophen W/ Codeine [Tylenol W/ CODEINE #3] 1 ea PO Q4HR PRN #24 12/03/16 Ibuprofen 800 mg PO Q8HR PRN #30 tab 12/03/16 Promethazine Tab [Phenergan Tablet] 25 mg PO Q6H PRN #15 tab 12/03/16 Tamsulosin HCl [Flomax] 0.4 mg PO DAILY #7 cap 12/03/16 Review of Systems - Review of Systems Constitutional: Denies: chills, fever EENTM: Denies: double vision, ear pain Respiratory: Denies: cough, short of breath Cardiology: Denies: chest pain, palpitations Gastrointestinal/Abdominal: States: see HPI, abdominal pain, nausea. Denies: diarrhea, vomiting Genitourinary: Denies: dysuria, frequency, hematuria Musculoskeletal: Denies: joint pain, muscle stiffness Skin: Denies: dryness, lesions Neurological: Denies: headache, paresthesia Endocrine: States: no symptoms reported Hematologic/Lymphatic: States: no symptoms reported Past Medical History (General) - Patient Medical History Hx Seizures: Yes - 1.5 yrs ago said to be caused by maoi medication Hx Stroke: No Hx Dementia: No Hx Asthma: No Hx of COPD: No Hx Cardiac Disorders: No Hx Congestive Heart Failure: No Hx Pacemaker: No Hx Hypertension: No Hx Thyroid Disease: No Hx Diabetes: No Hx Gastroesophageal Reflux: Yes Hx Renal Disease: No Hx Cancer: No Hx of HIV: No Hx Hepatitis C: No Hx MRSA: No Surgical History: appendectomy - Vaccination History Hx Tetanus, Diphtheria Vaccination: Yes Hx Influenza Vaccination: No Hx Pneumococcal Vaccination: No - Social History Hx Tobacco Use: Yes Cigarettes Packs Per Day: 1 Hx Chewing Tobacco Use: No Hx Alcohol Use: No Hx Substance Use: Yes Hx Substance Use Treatment: No Hx Depression: Yes - Prozac, xanax Hx Physical Abuse: No Hx Emotional Abuse: No Hx Suspected Abuse: No - Female History Patient : No Family Medical History - Family History Mother Family History: No Known Physical Exam - Physical Exam General Appearance: Alert, Obvious distress Neck: normal inspection Respiratory: normal breath sounds, no respiratory distress Cardiovascular/Chest: regular rate, rhythm, no murmur Gastrointestinal/Abdominal: non tender, soft Back Exam: normal inspection Extremity: normal inspection Neurologic: alert Skin Exam: normal color, warm/dry Progress - Progress Progress: 12/03/16 22:20 PREVIOUS RECORDS REVIEWED REVEALING PTS LAST VISIT TO ED WAS OCTOBER 2016 FOR FEVER. 12/03/16 22:51 PT RESTING COMFORTABLY, REPORTS SIGNIFICANT IMPROVEMENT IN PAIN AFTER TORADOL AND MORPHINE. CT FINDINGS DISCUSSED. - Results/Orders Results/Orders: 12/03/16 21:28 IV Care:Saline Lock per Protoc QSHIFT Sodium Chloride 0.9% (Flush) [Saline Flush Syringe] 10 ml IV PRN PRN Sodium Chloride 0.9% 1000ML [Ns 1000 ml] 1,000 ml IVS .QD Laboratory Results - last 24 hr 12/03/16 12/03/16 12/03/16 21:35 21:35 22:50 WBC 14.5 H RBC 4.82 Hgb 14.0 Hct 41.8 L MCV 86.7 MCH 29.1 MCHC 33.6 RDW 13.3 Plt Count 282 MPV 8.9 Absolute Neuts (auto) 5.40 Absolute Lymphs (auto) 7.80 H Absolute Monos (auto) 0.90 H Absolute Eos (auto) 0.30 Absolute Basos (auto) 0.10 Neutrophils % Not Reportable Neutrophils % (Manual) 30.0 Lymphocytes % Not Reportable Lymphocytes % (Manual) 62.0 Monocytes % Not Reportable Monocytes % (Manual) 7.0 Eosinophils % Not Reportable Basophils % Not Reportable Eosinophils 1.0 Platelet Estimate Normal Normal RBC Morphology Normal rbc morph Sodium 138 Potassium 2.9 L Chloride 106 Carbon Dioxide 25 Anion Gap 9.9 L BUN 13 Creatinine 1.11 BUN/Creatinine Ratio 11.7 Random Glucose 115 H Serum Osmolality 276.7 Calcium 8.6 Total Bilirubin 0.6 Direct Bilirubin < 0.1 Indirect Bilirubin 0.5 AST 21 ALT 22 Alkaline Phosphatase 69 Serum Total Protein 6.9 Albumin 4.3 Urine Color Yellow Urine Appearance Clear Urine pH 6.0 Ur Specific [place] 1.025 Urine Protein 30 Urine Glucose (UA) Negative Urine Ketones Trace Urine Blood Large H Urine Nitrite Negative Urine Bilirubin Small H Urine Urobilinogen 0.2 Ur Leukocyte Esterase Negative Urine RBC 40-50 H Urine WBC 0-1 Ur Epithelial Cells 0-1 Urine Bacteria Rare Urine Mucus Large - EKG/XRAY/CT CT: 2MM LEFT UVJ STONE WITH MILD LEFT HYDRO PER RAD. Departure - Departure Clinical Impression: Ureteral stone with hydronephrosis, Nausea Time of Disposition: 23:11 Disposition: Discharge to Home or Self Care Condition: Good Departure Forms: ED Discharge - Pt. Copy, Patient Portal Self Enrollment Instructions: DI for Kidney Stones Prescriptions: Acetaminophen W/ Codeine [Tylenol W/ CODEINE #3] 1 ea PO Q4HR PRN #24 PRN Reason: Pain Ibuprofen 800 mg PO Q8HR PRN #30 tab PRN Reason: Pain Promethazine Tab [Phenergan Tablet] 25 mg PO Q6H PRN #15 tab PRN Reason: Nausea/Vomiting Tamsulosin HCl [Flomax] 0.4 mg PO DAILY #7 cap Home Medications: Ambulatory Orders Acetaminophen W/ Codeine [Tylenol W/ CODEINE #3] 1 ea PO Q4HR PRN #24 12/03/16 Ibuprofen 800 mg PO Q8HR PRN #30 tab 12/03/16 Promethazine Tab [Phenergan Tablet] 25 mg PO Q6H PRN #15 tab 12/03/16 Tamsulosin HCl [Flomax] 0.4 mg PO DAILY #7 cap 12/03/16
[2016-12-03] MEDS: ONDANSETRON INJ 4 MG/2 ML VIAL IV ONE (21:35)
[2016-12-03] MEDS: SODIUM CHLORIDE 0.9% 1000ML 1,000 ML IVS PRN (21:35)
[2016-12-03] MEDS: KETOROLAC TROMETHAMINE INJ 30 MG/ML VIAL IV ONE (21:35)
[2016-12-03] MEDS: MORPHINE SULFATE INJ 10 MG/ML VIAL IV ONE (21:35)
[2016-12-03] MEDS: SODIUM CHLORIDE 0.9% (FLUSH) 10 ML SYG IV PRN (21:36)
--- NOTE | 2016-12-03 22:27 | CT ---
EXAM DESCRIPTION: Abdoment/Pelvis w/o Contrast CLINICAL HISTORY: left lateral abdominal pain, renal stone protocol COMPARISON: None Available TECHNIQUE: Contiguous axial images of the abdomen and pelvis were obtained followed by reconstruction images. This exam was performed according to our departmental dose-optimization program, which includes automated exposure control, adjustment of the mA and/or kV according to patient size and/or use of iterative reconstruction technique. FINDINGS: The left kidney demonstrates hydronephrosis due to of 2 mm stone at the ureterovesical junction. Patient is status post appendectomy. Compression deformity of the superior endplate of the L1 vertebral body without retropulsion could represent an old fracture. The liver, spleen, pancreas and right kidney are within normal limits. The gallbladder is unremarkable by CT criteria. Adrenal glands are within normal limits. Aorta is of normal caliber and tapering. There is no free fluid in the abdomen or pelvis. There is no bowel obstruction. There is no stranding of the mesenteric fat to suggest an inflammatory response. IMPRESSION: Left-sided hydronephrosis due to a 2 mm stone at the ureterovesical junction. Electronically signed by: Aron Guerrero MD 12/03/2016 10:27 PM CDT
[2016-12-03] MEDS: PROMETHAZINE TAB (ER DISP) 25 MG TAB PO ONE (23:01)
[2016-12-03] MEDS: HYDROCOD/APAP 7.5/325 (ER DISP) #3 TAB PO ONE (23:01)
[2016-12-03 23:18] VITALS: BP 106/59; TEMP 97.5
== END 2016-12-03 23:18 | disposition home or self-care (01) ==
LOC: ER 21:13
DX: N13.2 Hydronephrosis with renal and ureteral calculous obstruction (principal); F32.9 Major depressive disorder, single episode, unspecified; K21.9 Gastro-esophageal reflux disease without esophagitis; Z87.891 Personal history of nicotine dependence
CPT/HCPCS: 36415; 74176; 80048; 80076; 81001; 85025; J1885; J2270; J2405; J7030; Q0169

== ENCOUNTER 2017-01-21 15:20 | Emergency (ER) | payer OTHER ==
--- NOTE | 2017-01-21 15:26 | ED.PDOC ---
History of Present Illness - General Chief Complaint: Back Pain or Injury Stated Complaint: pain left scapula Time Seen by Provider: 01/21/17 15:22 Source: patient Exam Limitations: no limitations - History of Present Illness Initial Comments: Darrel Isaac 26 y/ Timing/Duration: 24 hours, constant Quality/Severity: moderate, sharpness Back Pain Location: T-spine Back Pain Radiation: other - NONE Method of Injury/Prior Injury: unknown Improving Factors: rest Worsening Factors: movement Associated Symptoms: denies symptoms Allergies/Adverse Reactions: Allergies NO KNOWN ALLERGY Allergy (Verified 01/21/17 15:31) Home Medications: Ambulatory Orders Acetaminophen W/ Codeine [Tylenol W/ CODEINE #3] 1 ea PO Q4HR PRN #24 12/03/16 Ibuprofen 800 mg PO Q8HR PRN #30 tab 12/03/16 Promethazine Tab [Phenergan Tablet] 25 mg PO Q6H PRN #15 tab 12/03/16 Tamsulosin HCl [Flomax] 0.4 mg PO DAILY #7 cap 12/03/16 Baclofen 10 mg PO BID #10 tab 01/21/17 Lidocaine [Aspercreme Lidocaine Patc] 4 % EX DAILY #14 pad 01/21/17 Naproxen [Naprosyn] 500 mg PO BID #14 tab 01/21/17 Review of Systems - Review of Systems Constitutional: States: no symptoms reported EENTM: States: no symptoms reported Respiratory: States: no symptoms reported Cardiology: States: no symptoms reported Gastrointestinal/Abdominal: States: no symptoms reported Genitourinary: States: no symptoms reported Musculoskeletal: States: muscle pain Skin: States: no symptoms reported Neurological: States: no symptoms reported Past Medical History (General) - Patient Medical History Hx Seizures: Yes - 1.5 yrs ago said to be caused by maoi medication Hx Stroke: No Hx Dementia: No Hx Asthma: No Hx of COPD: No Hx Cardiac Disorders: No Hx Congestive Heart Failure: No Hx Pacemaker: No Hx Hypertension: No Hx Thyroid Disease: No Hx Diabetes: No Hx Gastroesophageal Reflux: Yes Hx Renal Disease: No Hx Cancer: No Hx of HIV: No Hx Hepatitis C: No Hx MRSA: No Surgical History: no surgical history - Vaccination History Hx Tetanus, Diphtheria Vaccination: Yes Hx Influenza Vaccination: No Hx Pneumococcal Vaccination: No - Social History Hx Tobacco Use: Yes Hx Chewing Tobacco Use: No Hx Alcohol Use: No Hx Substance Use: Yes Hx Substance Use Treatment: No Hx Depression: Yes - Prozac, xanax Hx Physical Abuse: No Hx Emotional Abuse: No Hx Suspected Abuse: No - Female History Patient : No Family Medical History - Family History Mother Family History: No Known Physical Exam - Physical Exam General Appearance: Alert, Frail Eyes, Ears, Nose, Throat Exam: PERRL/EOMI, normal ENT inspection Neck Exam: non-tender, full range of motion, normal alignment Cardiovascular/Respiratory: regular rate, rhythm, no M/R/G, normal peripheral pulses Peripheral Pulses: radial,right: 1+, radial,left: 1+ Gastrointestinal/Abdominal: normal bowel sounds, non tender, soft, no organomegaly Back Exam: normal inspection, other - tenderness to palpation left interscapular muscle Extremity Exam: no evidence of injury, normal range of motion Neurologic: no motor/sensory deficits, alert, normal mood/affect, oriented x 3 Skin Exam: normal color, warm/dry Progress - Progress Progress: 01/21/17 15:54 Vital Signs - 8 hr 01/21/17 15:25 Temperature 97.8 F Pulse Rate [ 87 pulse ox] Respiratory 20 Rate Blood Pressure 123/76 [Left Arm] O2 Sat by Pulse 97 Oximetry - EKG/XRAY/CT XRAY: chest - normal 2 view chest and shoulder left/radiologist Departure - Departure Clinical Impression: Interscapular pain Time of Disposition: 16:38 Disposition: Discharge to Home or Self Care Condition: Good Departure Forms: ED Discharge - Pt. Copy, Patient Portal Self Enrollment Prescriptions: Baclofen 10 mg PO BID #10 tab Lidocaine [Aspercreme Lidocaine Patc] 4 % EX DAILY #14 pad Naproxen [Naprosyn] 500 mg PO BID #14 tab Home Medications: Ambulatory Orders Acetaminophen W/ Codeine [Tylenol W/ CODEINE #3] 1 ea PO Q4HR PRN #24 12/03/16 Ibuprofen 800 mg PO Q8HR PRN #30 tab 12/03/16 Promethazine Tab [Phenergan Tablet] 25 mg PO Q6H PRN #15 tab 12/03/16 Tamsulosin HCl [Flomax] 0.4 mg PO DAILY #7 cap 12/03/16 Baclofen 10 mg PO BID #10 tab 01/21/17 Lidocaine [Aspercreme Lidocaine Patc] 4 % EX DAILY #14 pad 01/21/17 Naproxen [Naprosyn] 500 mg PO BID #14 tab 01/21/17 Additional Instructions: ICE PACK TO AFFECTED AREA x A day for 20 minutes during waking hours only; Follow up with orthopedist call for appointment 01/22/2017;EXCUSE FROM WORK TODAY 01/21/2017 Return to work 01/22/2017 without restrictions.
[2017-01-21 15:31] VITALS: TEMP 97.8
--- NOTE | 2017-01-21 16:02 | RAD ---
EXAM DESCRIPTION: Shoulder,Left 2 or More Views CLINICAL HISTORY: pain COMPARISON: None Available. TECHNIQUE: Two views of the left shoulder. FINDINGS: There is good internal and external rotation. There is no fracture or bone lesion. There are no significant degenerative changes observed. IMPRESSION: 1. Normal shoulder. Electronically signed by: David Patel MD 01/21/2017 4:01 PM CDT Workstation: [email or web address], [email or web address]
--- NOTE | 2017-01-21 16:03 | RAD ---
EXAM DESCRIPTION: Chest,2 Views CLINICAL HISTORY: pain COMPARISON: August 22, 2011 TECHNIQUE: PA/lateral FINDINGS: There is no cardiac or pulmonary abnormality. The lungs are clear. There is no effusion. IMPRESSION: 1. Normal two-view chest. Electronically signed by: David Patel MD 01/21/2017 4:02 PM CDT Workstation: [id number]
[2017-01-21] MEDS ORDERED: KETOROLAC TROMETHAMINE INJ 60 MG/2 ML VIAL IM ONE (16:38)
[2017-01-21] MEDS ORDERED: ORPHENADRINE CITRATE 30 MG/ML AMP IM ONE (16:38)
[2017-01-21 17:10] VITALS: BP 117/74; O2SAT 96
== END 2017-01-21 17:10 | disposition home or self-care (01) ==
LOC: ER 15:20
DX: M25.512 Pain in left shoulder (principal); K21.9 Gastro-esophageal reflux disease without esophagitis; F32.9 Major depressive disorder, single episode, unspecified; Z79.899 Other long term (current) drug therapy; Z87.891 Personal history of nicotine dependence
CPT/HCPCS: 71020; 73030; J1885; J2360

== ENCOUNTER 2017-02-25 06:51 | Emergency (ER) | payer OTHER ==
[2017-02-25 07:07] VITALS: TEMP 98.1
[2017-02-25] MEDS ORDERED: KETOROLAC TROMETHAMINE INJ 60 MG/2 ML VIAL IM ONE (07:10)
--- NOTE | 2017-02-25 07:36 | RAD ---
EXAM: Three view(s) of the lumbar spine. INDICATION: Pain, lumbar spine. COMPARISON: CT abdomen dated 05/08/2016. FINDINGS: Alignment: Intact. Fracture: No acute compression fracture or subluxation. There is a mild chronic anterior wedge compression deformity of L1. IMPRESSION: 1. No acute compression fracture. Electronically signed by: Lacho Ricketts MD 02/25/2017 7:35 AM CDT Workstation: [id number]
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
[2017-02-25 08:37] VITALS: BP 133/79; O2SAT 99
== END 2017-02-25 08:37 | disposition home or self-care (01) ==
LOC: ER 06:51
DX: M48.56XA Collapsed vertebra, not elsewhere classified, lumbar region, initial encounter for fracture (principal); K21.9 Gastro-esophageal reflux disease without esophagitis; Z87.891 Personal history of nicotine dependence; F32.9 Major depressive disorder, single episode, unspecified; Z79.899 Other long term (current) drug therapy
CPT/HCPCS: 72100; J1885

== ENCOUNTER 2017-03-10 23:24 | Emergency (ER) | payer OTHER ==
[2017-03-11 00:01] VITALS: TEMP 97.9; O2SAT 95
[2017-03-11] MEDS ORDERED: KETOROLAC TROMETHAMINE INJ 60 MG/2 ML VIAL IM ONE (00:17)
[2017-03-11] MEDS ORDERED: ORPHENADRINE CITRATE 30 MG/ML AMP IM ONE (00:17)
--- NOTE | 2017-03-11 00:17 | ED.PDOC ---
History of Present Illness - General Chief Complaint: Back Pain or Injury Stated Complaint: back pain Time Seen by Provider: 03/11/17 00:07 Source: patient Additional Information: REPORTS ONSET OF BACK PAIN 1 MO AGO. HAS BEEN SEEN HERE 01/21/17 AND 02/21/17. LAST VISIT WAS FOR LBP WITH LS SPINE SERIES SHOWING CHRONIC COMPRESSION L1, NO ACUTE FX. - History of Present Illness Timing/Duration: 1 week Quality/Severity: moderate Back Pain Location: lumbar spine, other - NO RADIATION Improving Factors: other - SOME RELIEF WITH NSAIDS Worsening Factors: movement Allergies/Adverse Reactions: Allergies NO KNOWN ALLERGY Allergy (Verified 03/11/17 00:01) Home Medications: Ambulatory Orders Cyclobenzaprine HCl [Flexeril] 10 mg PO DAILY 02/25/17 Cyclobenzaprine HCl [Flexeril] 10 mg PO TID PRN #15 tab 03/11/17 Ibuprofen 800 mg PO DAILY 03/11/17 Indomethacin 50 mg PO TID PRN #14 cap 03/11/17 Methylprednisolone [Medrol Dose Josh] 4 mg PO DAILY #1 tab 03/11/17 Review of Systems - Review of Systems Constitutional: Denies: chills, fever EENTM: States: no symptoms reported Respiratory: States: no symptoms reported Cardiology: States: no symptoms reported Gastrointestinal/Abdominal: States: other - NO BOWEL INCONTINENCE. Denies: abdominal pain, nausea, vomiting Genitourinary: States: no symptoms reported, other - NO INCONTINENCE Musculoskeletal: States: back pain. Denies: neck pain Skin: States: no symptoms reported Neurological: Denies: paresthesia, weakness Endocrine: States: no symptoms reported Past Medical History (General) - Patient Medical History Hx Seizures: Yes - 1.5 yrs ago said to be caused by maoi medication Hx Stroke: No Hx Dementia: No Hx Asthma: No Hx of COPD: No Hx Cardiac Disorders: No Hx Congestive Heart Failure: No Hx Pacemaker: No Hx Hypertension: No Hx Thyroid Disease: No Hx Diabetes: No Hx Gastroesophageal Reflux: Yes Hx Renal Disease: No Hx Cancer: No Hx of HIV: No Hx Hepatitis C: No Hx MRSA: No Surgical History: appendectomy - Vaccination History Hx Tetanus, Diphtheria Vaccination: Yes Hx Influenza Vaccination: No Hx Pneumococcal Vaccination: No - Social History Hx Tobacco Use: Yes Hx Chewing Tobacco Use: No Hx Alcohol Use: No Hx Substance Use: Yes - marijuanna Hx Substance Use Treatment: No Hx Depression: No Feels Threatened In Home Enviroment: No Feels Threatened In a Relationship: No Hx Physical Abuse: No Hx Emotional Abuse: No Hx Suspected Abuse: No - Female History Patient : No Family Medical History - Family History Mother Family History: No Known Physical Exam - Physical Exam General Appearance: Alert, No apparent distress, Other - APPEARS UNCOMFORTABLE Eyes, Ears, Nose, Throat Exam: PERRL/EOMI, normal ENT inspection Neck Exam: non-tender, full range of motion Gastrointestinal/Abdominal: non tender, soft Back Exam: normal inspection, vertebral tenderness - MILD TTP UPPER LUMBAR SPINE , NO SPASM, NO DEFORMITY, Extremity Exam: no evidence of injury, normal range of motion Neurologic: alert, normal mood/affect, other - ST NL MARJ, SENS NL, NO FOOT DROP. DTR'S 2+/4+ SYMMETRICAL PATELLAR AND ANKLE Skin Exam: normal color, warm/dry Progress - Progress Progress: 03/11/17 01:09 SLEEPING, FEELS BETTER Departure - Departure Clinical Impression: Lumbago Qualifiers: Chronicity: acute Back pain laterality: midline Sciatica presence: without sciatica Qualified Code(s): M54.5 - Low back pain Time of Disposition: 01:10 Disposition: Discharge to Home or Self Care Condition: Good Departure Forms: ED Discharge - Pt. Copy, Patient Portal Self Enrollment Instructions: DI for Low Back Pain Prescriptions: Cyclobenzaprine HCl [Flexeril] 10 mg PO TID PRN #15 tab PRN Reason: Pain Indomethacin 50 mg PO TID PRN #14 cap PRN Reason: Pain Methylprednisolone [Medrol Dose Josh] 4 mg PO DAILY #1 tab Home Medications: Ambulatory Orders Cyclobenzaprine HCl [Flexeril] 10 mg PO DAILY 02/25/17 Cyclobenzaprine HCl [Flexeril] 10 mg PO TID PRN #15 tab 03/11/17 Ibuprofen 800 mg PO DAILY 03/11/17 Indomethacin 50 mg PO TID PRN #14 cap 03/11/17 Methylprednisolone [Medrol Dose Josh] 4 mg PO DAILY #1 tab 03/11/17
[2017-03-11 01:24] VITALS: BP 122/82
== END 2017-03-11 01:24 | disposition home or self-care (01) ==
LOC: ER 23:24
DX: M54.5 Low back pain (principal); K21.9 Gastro-esophageal reflux disease without esophagitis; Z87.891 Personal history of nicotine dependence
CPT/HCPCS: J1885; J2360

== ENCOUNTER 2017-03-16 11:28 | Emergency (ER) | payer OTHER ==
[2017-03-16] MEDS ORDERED: ACTIVATED CHARCOAL PELLETS 25 GM BTTL PO ONE (11:47)
[2017-03-16] MEDS ORDERED: ACTIVATED CHARCOAL PELLETS 25 GM BTTL ONE (11:48)
[2017-03-16] MEDS ORDERED: SORBITOL 70 % 30 ML UD ONE (11:49)
[2017-03-16 12:23] VITALS: TEMP 99.7
--- NOTE | 2017-03-16 12:36 | ED.PDOC ---
History of Present Illness - General Chief Complaint: Behavioral / Psych Stated Complaint: ingested rat poison Time Seen by Provider: 03/16/17 11:32 Source: patient Exam Limitations: no limitations - History of Present Illness Initial Comments: the patient is a 26-year-old male presenting to the emergency room about 10 minutes after ingesting a very small amount of a wrap poison. By description it appears that it was less than a 20th of a one-inch cube of decon. he reports that he was upset and wanted to hurt himself but did not want to . He does have a history of depression and anxiety but has not seen a psychiatrist in a while. He is currently not wanting to . He is not planning on dying. He was just upset at this time. He feels fine. He just thought he would come up to get Checked out. no nausea or vomiting. No headache. No neurological changes. Eye contact is good. The patient is conversive. He does not appear too upset. i see no evidence of any physical injury. I see no evidence of any of thematerial in his teeth. He reports he spit most of it out. Timing/Duration: momentarily Severity: mild Improving Factors: nothing Worsening Factors: nothing Associated Symptoms: denies symptoms Allergies/Adverse Reactions: Allergies NO KNOWN ALLERGY Allergy (Verified 03/11/17 00:01) Home Medications: Ambulatory Orders Cyclobenzaprine HCl [Flexeril] 10 mg PO DAILY 02/25/17 Cyclobenzaprine HCl [Flexeril] 10 mg PO TID PRN #15 tab 03/11/17 Ibuprofen 800 mg PO DAILY 03/11/17 Indomethacin 50 mg PO TID PRN #14 cap 03/11/17 Methylprednisolone [Medrol Dose Josh] 4 mg PO DAILY #1 tab 03/11/17 Review of Systems - Review of Systems Constitutional: States: no symptoms reported EENTM: States: no symptoms reported Respiratory: States: no symptoms reported Cardiology: States: no symptoms reported Gastrointestinal/Abdominal: States: no symptoms reported Genitourinary: States: no symptoms reported Musculoskeletal: States: no symptoms reported Skin: States: no symptoms reported Neurological: States: anxiety, depressed Endocrine: States: no symptoms reported All other Systems: No Change from Baseline Past Medical History (General) - Patient Medical History Hx Seizures: Yes - 1.5 yrs ago said to be caused by maoi medication Hx Stroke: No Hx Dementia: No Hx Asthma: No Hx of COPD: No Hx Cardiac Disorders: No Hx Congestive Heart Failure: No Hx Pacemaker: No Hx Hypertension: No Hx Thyroid Disease: No Hx Diabetes: No Hx Gastroesophageal Reflux: Yes Hx Renal Disease: No Hx Cancer: No Hx of HIV: No Hx Hepatitis C: No Hx MRSA: No - Vaccination History Hx Tetanus, Diphtheria Vaccination: Yes Hx Influenza Vaccination: No Hx Pneumococcal Vaccination: No - Social History Hx Tobacco Use: Yes Hx Chewing Tobacco Use: No Hx Alcohol Use: No Hx Substance Use: Yes - marijuanna Hx Substance Use Treatment: No Hx Depression: No Hx Physical Abuse: No Hx Emotional Abuse: No Hx Suspected Abuse: No - Female History Patient : No Family Medical History - Family History Mother Family History: No Known Physical Exam - Physical Exam General Appearance: Alert, Comfortable, No apparent distress Eye Exam: bilateral normal Ears, Nose, Throat: hearing grossly normal, normal ENT inspection, normal pharynx Neck: full range of motion, supple Respiratory: chest non-tender, lungs clear, normal breath sounds, no respiratory distress, no accessory muscle use Cardiovascular/Chest: normal peripheral pulses, regular rate, rhythm, no edema Peripheral Pulses: radial,right: 2+, radial,left: 2+, dorsalis pedis,right: 2+, dorsalis pedis,left: 2+ Gastrointestinal/Abdominal: non tender, soft Rectal Exam: deferred Back Exam: no vertebral tenderness, other - he does have some long-standing general back pain Extremity: normal range of motion, non-tender, normal inspection, no pedal edema , normal capillary refill 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 Poison control was contacted and recommended activated charcoal which the patient did take. The patient left AGAINST MEDICAL ADVICE before all labs have returned and [facility] could arrive. The patient reported that he was not suicidal. He did not want to hurt himself or anyone else. He will contact his psychiatrist for further care. it was recommended that the patient have repeat labs performed in the next week and he follow-up with his primary care doctor as well. f note the patient did deny any other substance abuse however left before he would give a urine sample. 03/16/17 12:40 - Results/Orders Results/Orders: 03/16/17 11:48 URINE DRUG SCREEN, 7 ASSAY Stat the patient left AGAINST MEDICAL ADVICE prior to giving this Laboratory Results - last 24 hr 03/16/17 03/16/17 03/16/17 11:58 11:58 11:58 WBC 12.6 H RBC 4.91 Hgb 14.0 Hct 41.7 L MCV 84.9 MCH 28.6 MCHC 33.7 RDW 13.3 Plt Count 267 MPV 8.3 Absolute Neuts (auto) 9.40 H Absolute Lymphs (auto) 2.40 Absolute Monos (auto) 0.70 Absolute Eos (auto) 0.00 Absolute Basos (auto) 0.00 Neutrophils % 74.5 Lymphocytes % 19.4 L Monocytes % 5.8 Eosinophils % 0.1 L Basophils % 0.2 PT 11.5 INR 1.020 PTT (SP) 29.1 Sodium 140 Potassium 3.5 L Chloride 109 Carbon Dioxide 24 Anion Gap 10.5 L BUN 12 Creatinine 0.74 BUN/Creatinine Ratio 16.2 Random Glucose 106 H Serum Osmolality 279.6 Calcium 9.1 Total Bilirubin 0.8 AST 22 ALT 22 Alkaline Phosphatase 70 Serum Total Protein 7.7 Albumin 4.8 Globulin 2.9 Albumin/Globulin Ratio 1.7 Amylase 20 L Acetaminophen 03/16/17 11:58 WBC RBC Hgb Hct MCV MCH MCHC RDW Plt Count MPV Absolute Neuts (auto) Absolute Lymphs (auto) Absolute Monos (auto) Absolute Eos (auto) Absolute Basos (auto) Neutrophils % Lymphocytes % Monocytes % Eosinophils % Basophils % PT INR PTT (SP) Sodium Potassium Chloride Carbon Dioxide Anion Gap BUN Creatinine BUN/Creatinine Ratio Random Glucose Serum Osmolality Calcium Total Bilirubin AST ALT Alkaline Phosphatase Serum Total Protein Albumin Globulin Albumin/Globulin Ratio Amylase Acetaminophen < 10.0 L Departure - Departure Clinical Impression: Ingestion of foreign substance Qualifiers: Encounter type: initial encounter Qualified Code(s): T18.9XXA - Foreign body of alimentary tract, part unspecified, initial encounter Depression Qualifiers: Depression Type: unspecified Qualified Code(s): F32.9 - Major depressive disorder, single episode, unspecified Disposition: Left Against Medical Advice Condition: Fair Departure Forms: ED Discharge - Pt. Copy Diet: regular diet Activity: increase activity as tolerated Home Medications: Ambulatory Orders Cyclobenzaprine HCl [Flexeril] 10 mg PO DAILY 02/25/17 Cyclobenzaprine HCl [Flexeril] 10 mg PO TID PRN #15 tab 03/11/17 Ibuprofen 800 mg PO DAILY 03/11/17 Indomethacin 50 mg PO TID PRN #14 cap 03/11/17 Methylprednisolone [Medrol Dose Josh] 4 mg PO DAILY #1 tab 03/11/17
[2017-03-16 12:57] VITALS: BP 136/89; O2SAT 97
== END 2017-03-16 12:35 | disposition left against medical advice (07) ==
LOC: ER 11:28
DX: T60.4X2A Toxic effect of rodenticides, intentional self-harm, initial encounter (principal); F32.9 Major depressive disorder, single episode, unspecified; Y92.9 Unspecified place or not applicable

== ENCOUNTER 2017-04-19 21:41 | Emergency (ER) | payer OTHER ==
[2017-04-19] MEDS ORDERED: SODIUM CHLORIDE 0.9% 1000ML 1,000 ML IVS ONE (23:21)
[2017-04-20 00:23] VITALS: O2SAT 97
--- NOTE | 2017-04-20 00:33 | ED.PDOC ---
History of Present Illness - General Chief Complaint: Abdominal Pain Stated Complaint: abd pain, diarrhea, headache Time Seen by Provider: 04/19/17 22:33 Source: patient, RN notes reviewed, Vital Signs reviewed Additional Information: Pt reports about 3 to 4 days of nausea, vomiting, diarrhea, and headache. Pt states he was supposed to work on Friday but was unable to due to his symptoms. Patient in no distress upon history and exam. - History of Present Illness Timing/Duration: other - about 3 to 4 days. Severity: mild Improving Factors: nothing Worsening Factors: nothing Associated Symptoms: headaches, nausea/vomiting Allergies/Adverse Reactions: Allergies NO KNOWN ALLERGY Allergy (Verified 04/19/17 22:40) Review of Systems - Review of Systems Constitutional: States: see HPI, malaise EENTM: States: no symptoms reported Respiratory: States: no symptoms reported Cardiology: States: no symptoms reported Gastrointestinal/Abdominal: States: see HPI, diarrhea, nausea, vomiting Genitourinary: States: no symptoms reported Musculoskeletal: States: no symptoms reported Skin: States: no symptoms reported Neurological: States: see HPI, headache Endocrine: States: no symptoms reported Hematologic/Lymphatic: States: no symptoms reported Past Medical History (General) - Patient Medical History Hx Seizures: Yes - 1.5 yrs ago said to be caused by maoi medication Hx Stroke: No Hx Dementia: No Hx Asthma: No Hx of COPD: No Hx Cardiac Disorders: No Hx Congestive Heart Failure: No Hx Pacemaker: No Hx Hypertension: No Hx Thyroid Disease: No Hx Diabetes: No Hx Gastroesophageal Reflux: Yes Hx Renal Disease: No Hx Cancer: No Hx of HIV: No Hx Hepatitis C: No Hx MRSA: No Surgical History: appendectomy - Vaccination History Hx Tetanus, Diphtheria Vaccination: Yes - 2014 Hx Influenza Vaccination: Yes - 2017 Hx Pneumococcal Vaccination: No - Social History Hx Tobacco Use: Yes Hx Chewing Tobacco Use: No Hx Alcohol Use: No Hx Substance Use: Yes - [email or web address] Hx Substance Use Treatment: No Hx Depression: No Hx Physical Abuse: No Hx Emotional Abuse: No Hx Suspected Abuse: No - Female History Patient : No Family Medical History - Family History Mother Family History: No Known Physical Exam - Physical Exam General Appearance: Comfortable, No apparent distress, Well Developed, Well Groomed, Well Hydrated Eye Exam: bilateral normal Ears, Nose, Throat: hearing grossly normal, normal ENT inspection, normal pharynx Neck: non-tender, full range of motion, supple, normal inspection Respiratory: normal breath sounds, no respiratory distress, no accessory muscle use Cardiovascular/Chest: regular rate, rhythm, no murmur Gastrointestinal/Abdominal: normal bowel sounds, non tender, soft Extremity: normal range of motion, non-tender, normal inspection Neurologic: microbiology technologist II-XII nml as tested, no motor/sensory deficits, alert, normal mood/affect, oriented x 3 Skin Exam: normal color, warm/dry Progress - Progress Progress: 04/20/17 00:34 Plan is to assess for dehydration with labs, provide IV fluids, and try to collect stool sample. - Results/Orders Results/Orders: 04/19/17 23:20 STOOL CULTURE Stat Laboratory Results - last 24 hr 04/19/17 04/19/17 04/20/17 23:35 23:35 00:20 WBC 9.7 RBC 4.54 L Hgb 13.4 L Hct 39.3 L MCV 86.7 MCH 29.5 MCHC 34.1 RDW 13.7 Plt Count 257 MPV 8.3 Absolute Neuts (auto) 5.60 Absolute Lymphs (auto) 3.40 Absolute Monos (auto) 0.50 Absolute Eos (auto) 0.10 Absolute Basos (auto) 0.10 Neutrophils % 57.2 Lymphocytes % 35.4 Monocytes % 5.5 Eosinophils % 1.2 Basophils % 0.7 Sodium 140 Potassium 3.3 L Chloride 106 Carbon Dioxide 27 Anion Gap 10.3 L BUN 12 Creatinine 0.75 BUN/Creatinine Ratio 16.0 Random Glucose 86 Serum Osmolality 278.5 Calcium 8.8 Total Bilirubin 0.3 AST 17 ALT 19 Alkaline Phosphatase 61 Serum Total Protein 6.6 Albumin 3.9 Globulin 2.7 Albumin/Globulin Ratio 1.4 Urine Color Yellow Urine Appearance Clear Urine pH 5.5 Ur Specific [place] >= 1.030 Urine Protein Negative Urine Glucose (UA) Negative Urine Ketones Trace Urine Blood Negative Urine Nitrite Negative Urine Bilirubin Negative Urine Urobilinogen 0.2 Ur Leukocyte Esterase Negative Urine RBC 0-1 Urine WBC 0-1 Ur Epithelial Cells 0-1 Calcium Oxalate Crystal 1+ Urine Bacteria Rare Urine Mucus Small Departure - Departure Clinical Impression: Diarrhea Qualifiers: Diarrhea type: unspecified type Qualified Code(s): R19.7 - Diarrhea, unspecified Headache Qualifiers: Headache type: other headache syndrome Qualified Code(s): G44.89 - Other headache syndrome Time of Disposition: 00:55 Disposition: Discharge to Home or Self Care Condition: Fair Departure Forms: ED Discharge - Pt. Copy, Patient Portal Self Enrollment Referrals: Juan Carlos Ayala MD [Primary Care Provider] - 1-5 Days Additional Instructions: Work excuse for 19 April 2017 for sure and as needed for 20 April 2017 if symptoms persist. Stay well hydrated. Collect stool sample and bring it into lab drop off/specimen collection. Return to ER if condition worsens/unable to keep fluids down. Ok to take over the counter Tylenol or Motrin for any aches/pains.
[2017-04-20 01:01] VITALS: BP 110/78; TEMP 97.8
== END 2017-04-20 01:00 | disposition home or self-care (01) ==
LOC: ER 21:41
DX: G44.89 Other headache syndrome (principal); R19.7 Diarrhea, unspecified; R11.2 Nausea with vomiting, unspecified; K21.9 Gastro-esophageal reflux disease without esophagitis; Z87.891 Personal history of nicotine dependence
CPT/HCPCS: 36415; 80053; 81001; 85025; J7030

== ENCOUNTER 2017-06-13 22:52 | Emergency (ER) | payer OTHER ==
--- NOTE | 2017-06-13 22:54 | ED.PDOC ---
History of Present Illness - General Chief Complaint: General Stated Complaint: vomiting Time Seen by Provider: 06/13/17 22:53 Source: patient - History of Present Illness Initial Comments: Darrel Isaac 27 y/o male stated that he had been throwing up on and off for the last 2 days unable to take anything down.No fever,diarrhea,dysuria Timing/Duration: intermittent, other - 2 days Severity: moderate Improving Factors: nothing Worsening Factors: nothing Associated Symptoms: other - see hpi Allergies/Adverse Reactions: Allergies NO KNOWN ALLERGY Allergy (Verified 04/19/17 22:40) Home Medications: Ambulatory Orders NK [NK] 06/13/17 Review of Systems - Review of Systems Constitutional: States: no symptoms reported EENTM: States: no symptoms reported Respiratory: States: no symptoms reported Cardiology: States: no symptoms reported Gastrointestinal/Abdominal: States: vomiting Genitourinary: States: no symptoms reported Musculoskeletal: States: no symptoms reported Skin: States: no symptoms reported Neurological: States: no symptoms reported Past Medical History (General) - Patient Medical History Hx Seizures: Yes - 1.5 yrs ago said to be caused by maoi medication Hx Stroke: No Hx Dementia: No Hx Asthma: No Hx of COPD: No Hx Cardiac Disorders: No Hx Congestive Heart Failure: No Hx Pacemaker: No Hx Hypertension: No Hx Thyroid Disease: No Hx Diabetes: No Hx Gastroesophageal Reflux: Yes Hx Renal Disease: No Hx Cancer: No Hx of HIV: No Hx Hepatitis C: No Hx MRSA: No Surgical History: no surgical history - Vaccination History Hx Tetanus, Diphtheria Vaccination: Yes - 2014 Hx Influenza Vaccination: Yes - 2016 Hx Pneumococcal Vaccination: No - Social History Hx Tobacco Use: Yes Hx Chewing Tobacco Use: No Hx Alcohol Use: No Hx Substance Use: Yes - [facility] Hx Substance Use Treatment: No Hx Depression: No Hx Physical Abuse: No Hx Emotional Abuse: No Hx Suspected Abuse: No - Female History Patient : No Family Medical History - Family History Mother Family History: No Known Physical Exam - Physical Exam General Appearance: Alert, Comfortable, No apparent distress Eye Exam: bilateral normal Ears, Nose, Throat: hearing grossly normal, normal ENT inspection, normal pharynx Neck: non-tender, full range of motion, supple Respiratory: chest non-tender, lungs clear, normal breath sounds Cardiovascular/Chest: normal peripheral pulses, regular rate, rhythm, no murmur Peripheral Pulses: radial,right: 2+, radial,left: 2+ Gastrointestinal/Abdominal: normal bowel sounds, non tender, soft, no organomegaly Extremity: normal range of motion, non-tender, no pedal edema, no calf tenderness Neurologic: no motor/sensory deficits, alert Skin Exam: normal color, warm/dry Progress - Progress Progress: 06/13/17 23:19 Last Vital Signs Temp 98.3 F 06/13/17 23:12 Pulse 88 06/13/17 23:12 Resp 18 06/13/17 23:12 BP 122/84 06/13/17 23:12 Pulse Ox 97 06/13/17 23:12 - Results/Orders Results/Orders: Laboratory Tests 06/13/17 06/13/17 06/13/17 23:30 23:30 23:30 WBC 11.1 H RBC 5.05 Hgb 14.9 Hct 43.1 MCV 85.2 MCH 29.5 MCHC 34.7 RDW 13.1 Plt Count 245 MPV 8.2 Absolute Neuts (auto) 7.20 H Absolute Lymphs (auto) 3.00 Absolute Monos (auto) 0.70 Absolute Eos (auto) 0.10 Absolute Basos (auto) 0.10 Neutrophils % 64.6 Lymphocytes % 27.1 Monocytes % 6.7 Eosinophils % 0.9 L Basophils % 0.7 Sodium 140 Potassium 3.8 Chloride 105 Carbon Dioxide 27 Anion Gap 11.8 L BUN 17 Creatinine 1.10 BUN/Creatinine Ratio 15.5 Random Glucose 82 Serum Osmolality 280.0 Calcium 9.3 Total Bilirubin 0.6 AST 20 ALT 25 Alkaline Phosphatase 70 Serum Total Protein 7.5 Albumin 4.5 Globulin 3.0 Albumin/Globulin Ratio 1.5 Lipase 22 Urine Color Urine Appearance Urine pH Ur Specific [place] Urine Protein Urine Glucose (UA) Urine Ketones Urine Blood Urine Nitrite Urine Bilirubin Urine Urobilinogen Ur Leukocyte Esterase Urine RBC Urine WBC Ur Epithelial Cells Amorphous Sediment Urine Bacteria Urine Mucus Urine Opiates Screen Negative Urine Barbiturates Negative Ur Phencyclidine Scrn Negative U Amphetamin/Meth Scrn Negative U Benzodiazepines Scrn Negative U Cocaine Metab Screen Negative U Cannabinoids Screen Positive H 06/13/17 23:30 WBC RBC Hgb Hct MCV MCH MCHC RDW Plt Count MPV Absolute Neuts (auto) Absolute Lymphs (auto) Absolute Monos (auto) Absolute Eos (auto) Absolute Basos (auto) Neutrophils % Lymphocytes % Monocytes % Eosinophils % Basophils % Sodium Potassium Chloride Carbon Dioxide Anion Gap BUN Creatinine BUN/Creatinine Ratio Random Glucose Serum Osmolality Calcium Total Bilirubin AST ALT Alkaline Phosphatase Serum Total Protein Albumin Globulin Albumin/Globulin Ratio Lipase Urine Color Yellow Urine Appearance Clear Urine pH 7.0 Ur Specific [place] 1.020 Urine Protein 30 Urine Glucose (UA) Negative Urine Ketones Trace Urine Blood Trace-intact H Urine Nitrite Negative Urine Bilirubin Small H Urine Urobilinogen 0.2 Ur Leukocyte Esterase Negative Urine RBC 3-5 H Urine WBC 1-3 Ur Epithelial Cells 0-1 Amorphous Sediment Trace Urine Bacteria Rare Urine Mucus Moderate Urine Opiates Screen Urine Barbiturates Ur Phencyclidine Scrn U Amphetamin/Meth Scrn U Benzodiazepines Scrn U Cocaine Metab Screen U Cannabinoids Screen Departure - Departure Clinical Impression: Cannabis abuse, unspecified Vomiting Qualifiers: Vomiting type: unspecified Vomiting Intractability: non-intractable Nausea presence: unspecified Qualified Code(s): R11.10 - Vomiting, unspecified Time of Disposition: 01:07 Disposition: Discharge to Home or Self Care Condition: Good Departure Forms: ED Discharge - Pt. Copy, Patient Portal Self Enrollment Instructions: Nausea and Vomiting-Adult, DI for Vomiting -- Adult Diet: bland diet, other - Avoid greasy/spicy foods until better Referrals: Juan Carlos Ayala MD [Primary Care Provider] - 1-2 Weeks Home Medications: Ambulatory Orders NK [NK] 06/13/17 Additional Instructions: Follow up with primary Md 06/16/2017 patient to call for appointment if needed
[2017-06-13 23:09] VITALS: TEMP 98.3; O2SAT 97
[2017-06-13] MEDS ORDERED: PANTOPRAZOLE SODIUM IV 40 MG VIAL IV ONE (23:20)
[2017-06-13] MEDS ORDERED: LACTATED RINGERS 1,000 ML IVS ONE (23:20)
[2017-06-13] MEDS ORDERED: ONDANSETRON INJ 4 MG/2 ML VIAL IV ONE (23:20)
[2017-06-14 00:59] VITALS: BP 107/60
[2017-06-14] MEDS ORDERED: ONDANSETRON ODT (ER DISP) 8 MG TAB PO ONE (01:07)
== END 2017-06-14 01:23 | disposition home or self-care (01) ==
LOC: ER 22:52
DX: R11.10 Vomiting, unspecified (principal); F12.10 Cannabis abuse, uncomplicated; K21.9 Gastro-esophageal reflux disease without esophagitis; Z87.891 Personal history of nicotine dependence
CPT/HCPCS: 36415; 80053; 80307; 81001; 83690; 85025; J2405; J7120

== ENCOUNTER 2017-09-06 11:31 | Emergency (ER) | payer OTHER ==
[2017-09-06 11:50] VITALS: BP 124/80; TEMP 97.3; O2SAT 96
--- NOTE | 2017-09-06 12:26 | RAD ---
EXAM DESCRIPTION: Ribs,Right 3 Views CLINICAL HISTORY: pain in right upper ribs COMPARISON: None available FINDINGS: 3 views of the right-sided ribs show no displaced rib fracture. No airspace consolidation or right pleural effusion. No pneumothorax. IMPRESSION: Negative exam. Electronically signed by: Fausto Epperson MD 09/06/2017 12:25 PM SENIOR EMBEDDED SOFTWARE ENGINEER
--- NOTE | 2017-09-06 13:04 | ED.PDOC ---
History of Present Illness - General Chief Complaint: General Stated Complaint: right rib pain Time Seen by Provider: 09/06/17 12:39 Source: patient Exam Limitations: no limitations - History of Present Illness Initial Comments: Drarel Isaac 27 y/o male stated fell down on the concrete stairsteps-3 steps above the floor then landed onthe right side of his body on the floor with sharp pain on his right rib cage since incident.Denies any other areas hurting. Timing/Duration: other - 3 days ago Severity: moderate Improving Factors: nothing Worsening Factors: other - deep breaths Associated Symptoms: other - see hpi Allergies/Adverse Reactions: Allergies NO KNOWN ALLERGY Allergy (Verified 04/19/17 22:40) Home Medications: Ambulatory Orders NK [NK] 06/13/17 Review of Systems - Review of Systems Constitutional: States: no symptoms reported EENTM: States: no symptoms reported Respiratory: States: no symptoms reported Cardiology: States: no symptoms reported Gastrointestinal/Abdominal: States: no symptoms reported Genitourinary: States: no symptoms reported Musculoskeletal: States: see HPI, other - rib cage pain Skin: States: no symptoms reported Past Medical History (General) - Patient Medical History Hx Seizures: Yes - 1.5 yrs ago said to be caused by maoi medication Hx Stroke: No Hx Dementia: No Hx Asthma: No Hx of COPD: No Hx Cardiac Disorders: No Hx Congestive Heart Failure: No Hx Pacemaker: No Hx Hypertension: No Hx Thyroid Disease: No Hx Diabetes: No Hx Gastroesophageal Reflux: Yes Hx Renal Disease: No Hx Cancer: No Hx of HIV: No Hx Hepatitis C: No Hx MRSA: No Surgical History: appendectomy - Vaccination History Hx Tetanus, Diphtheria Vaccination: Yes - 2014 Hx Influenza Vaccination: Yes Hx Pneumococcal Vaccination: No - Social History Hx Tobacco Use: Yes Hx Chewing Tobacco Use: No Hx Alcohol Use: No Hx Substance Use: Yes - [facility] Hx Substance Use Treatment: No Hx Depression: No Hx Physical Abuse: No Hx Emotional Abuse: No Hx Suspected Abuse: No - Female History Patient : No Family Medical History - Family History Mother Family History: No Known Physical Exam - Physical Exam General Appearance: Alert, Comfortable, No apparent distress Eye Exam: bilateral normal Ears, Nose, Throat: hearing grossly normal, normal ENT inspection Neck: non-tender, full range of motion, supple Respiratory: lungs clear, normal breath sounds, other - tenederness mid rib cage right Cardiovascular/Chest: regular rate, rhythm, no murmur Peripheral Pulses: radial,right: 2+, radial,left: 2+ Gastrointestinal/Abdominal: non tender, soft, no organomegaly Back Exam: no CVA tenderness, no vertebral tenderness Extremity: no pedal edema, no calf tenderness Neurologic: alert, oriented x 3 Skin Exam: normal color, warm/dry Lymphatic: no adenopathy Progress - Progress Progress: 09/06/17 13:07 Vital Signs - 24 hr 09/06/17 11:47 Temperature 97.3 F L Pulse Rate [ 89 Left Brachial] Respiratory 16 Rate Blood Pressure 124/80 [Left Arm] O2 Sat by Pulse 96 Oximetry 09/06/17 13:28 Could not wait for result of his CXR/rib series wants to leave AMA Departure - Departure Clinical Impression: Fall (on) (from) other stairs and steps, initial encounter, Rib pain Time of Disposition: 13:29 Disposition: Left Against Medical Advice Condition: Good Departure Forms: Patient Portal Self Enrollment Referrals: Juan Carlos Ayala MD [Primary Care Provider] - 1-2 Weeks Home Medications: Ambulatory Orders NK [NK] 06/13/17
--- NOTE | 2017-09-06 13:31 | RAD ---
EXAM: Chest,1 View CLINICAL INDICATION: 27-year-old male with rib pain. TECHNIQUE: Single view, AP portable chest was obtained. COMPARISON: None. FINDINGS: Unremarkable cardiac and mediastinal silhouette. Heart size is normal. Lungs are clear without focal opacity, pneumothorax or pleural effusions. The visualized bones are within normal limits of chest radiograph technique. If there is clinical concern for rib injury, dedicated rib series or CT chest is recommended. IMPRESSION: No acute cardiopulmonary abnormalities. Electronically signed by: Vivian Doran MD 09/06/2017 1:30 PM [facility]
== END 2017-09-06 13:30 | disposition left against medical advice (07) ==
LOC: ER 11:31
DX: R07.81 Pleurodynia (principal); W10.9XXA Fall (on) (from) unspecified stairs and steps, initial encounter; Y92.9 Unspecified place or not applicable

== ENCOUNTER 2018-01-15 02:42 | Emergency (ER) | payer OTHER ==
[2018-01-15] MEDS ORDERED: SILVER SULFADIAZINE 1 % 25 GM TUBE TOP ONE ×2 (02:53→03:04)
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
[2018-01-15] MEDS ORDERED: TETANUS,DIPHTHERIA,PERTUSSIS 1 EA SYG IM ONE (03:04)
[2018-01-15 03:05] VITALS: BP 120/70; TEMP 98.8; O2SAT 96
[2018-01-15] MEDS ORDERED: HYDROCOD/APAP 5/325 (ER DISP) #3 TAB PO ONE (03:16)
== END 2018-01-15 03:27 | disposition home or self-care (01) ==
LOC: ER 02:42
DX: T23.251A Burn of second degree of right palm, initial encounter (principal); Z23 Encounter for immunization; X19.XXXA Contact with other heat and hot substances, initial encounter; Y92.9 Unspecified place or not applicable

== ENCOUNTER 2018-04-27 15:14 | Emergency (ER) | payer OTHER ==
[2018-04-27 15:29] VITALS: BP 128/83
[2018-04-27] MEDS ORDERED: HYDROcodone 5MG/APAP 325MG 1 EA TAB ONE (15:37)
[2018-04-27] MEDS ORDERED: HYDROcodone 5MG/APAP 325MG 1 EA TAB PO ONE (15:38)
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
[2018-04-27] MEDS ORDERED: SULFA/TRIMETH 800/160 (DS) TAB 1 EA TAB PO ONE (15:51)
--- NOTE | 2018-04-27 15:55 | ED.PDOC ---
History of Present Illness - General Chief Complaint: Upper Extremity Injury Time Seen by Provider: 04/27/18 15:16 Source: patient Exam Limitations: no limitations - History of Present Illness Initial Comments: the patient is a 28-year-old male presenting to the emergency room secondary to left second digit pain after he hit the tip of it with a hammer. He does have some decreased sensation in that area. There is a small laceration to the lateral aspect of the base of the nail in the skin. No significant hematoma formation under the nail at this point. No other injuries. He is able to passively and actively move the finger. Capillary refill is less than 2 seconds. Allergies/Adverse Reactions: Allergies NO KNOWN ALLERGY Allergy (Verified 01/15/18 03:05) Home Medications: Ambulatory Orders SILVER SULFADIAZINE 1 % 25gm [Silvadene Cream 25gm] 25 gm TOP BID 14 Days #1 tube 01/15/18 Tramadol HCl 50 mg PO TID PRN #10 tab 01/15/18 Sulfa/Trimeth 800/160 (Ds) Tab [Bactrim DS Tab] 1 ea PO DAILY #5 tab 04/27/18 Review of Systems - Review of Systems Constitutional: States: no symptoms reported EENTM: States: no symptoms reported Respiratory: States: no symptoms reported Cardiology: States: no symptoms reported Gastrointestinal/Abdominal: States: no symptoms reported Genitourinary: States: no symptoms reported Musculoskeletal: States: see HPI Skin: States: no symptoms reported Neurological: States: see HPI Endocrine: States: no symptoms reported All other Systems: No Change from Baseline Past Medical History (General) - Patient Medical History Hx Seizures: Yes - 1.5 yrs ago said to be caused by maoi medication Hx Stroke: No Hx Dementia: No Hx Asthma: No Hx of COPD: No Hx Cardiac Disorders: No Hx Congestive Heart Failure: No Hx Pacemaker: No Hx Hypertension: No Hx Thyroid Disease: No Hx Diabetes: No Hx Gastroesophageal Reflux: Yes Hx Renal Disease: No Hx Cancer: No Hx of HIV: No Hx Hepatitis C: No Hx MRSA: No - Vaccination History Hx Tetanus, Diphtheria Vaccination: Yes - 2015 Hx Influenza Vaccination: Yes Hx Pneumococcal Vaccination: No - Social History Hx Tobacco Use: Yes Hx Chewing Tobacco Use: No Hx Alcohol Use: No Hx Substance Use: Yes - marijuanna Hx Substance Use Treatment: No Hx Depression: No Hx Physical Abuse: No Hx Emotional Abuse: No Hx Suspected Abuse: No - Female History Patient : No Family Medical History - Family History Mother Family History: No Known Physical Exam - Physical Exam General Appearance: Alert, Anxious, No apparent distress Eye Exam: bilateral normal Ears, Nose, Throat: hearing grossly normal Neck: full range of motion Respiratory: no respiratory distress, no accessory muscle use Cardiovascular/Chest: normal peripheral pulses, no edema Peripheral Pulses: radial,right: 2+, radial,left: 2+ Rectal Exam: deferred Extremity: normal range of motion, no pedal edema, normal capillary refill, other - see history of present illness 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 There is a small laceration. X- ray shows no evidence of any fracture or dislocation. The wound was cleaned with hydrogen peroxide and Steri-Strips were placed. He will be placed on Bactrim daily for the next 5 days. He does have some mild numbness in the area which may resolve over the coming 2 weeks. He may end up with a little bit of permanent numbness which he needs to watch out for. ER warnings were given otherwise. Motrin and Tylenol can use for discomfort. Departure - Departure Clinical Impression: Hand trauma Qualifiers: Encounter type: initial encounter Laterality: left Qualified Code(s): S69.92XA - Unspecified injury of left wrist, hand and finger(s), initial encounter Disposition: Discharge to Home or Self Care Condition: Fair Departure Forms: ED Discharge - Pt. Copy, Patient Portal Self Enrollment Instructions: DI for Hand Pain Diet: regular diet Activity: increase activity as tolerated Referrals: Juan Carlos Ayala MD [Primary Care Provider] - 1-2 Weeks Prescriptions: Sulfa/Trimeth 800/160 (Ds) Tab [Bactrim DS Tab] 1 ea PO DAILY #5 tab Home Medications: Ambulatory Orders SILVER SULFADIAZINE 1 % 25gm [Silvadene Cream 25gm] 25 gm TOP BID 14 Days #1 tube 01/15/18 Tramadol HCl 50 mg PO TID PRN #10 tab 01/15/18 Sulfa/Trimeth 800/160 (Ds) Tab [Bactrim DS Tab] 1 ea PO DAILY #5 tab 04/27/18 Additional Instructions: the patient's 28-year-old male presenting after he hit the end of the second finger of his left hand with a hammer. There is a small laceration. X- ray shows no evidence of any fracture or dislocation. The wound was cleaned with hydrogen peroxide and Steri-Strips were placed. He will be placed on Bactrim daily for the next 5 days. He does have some mild numbness in the area which may resolve over the coming 2 weeks. He may end up with a little bit of permanent numbness which he needs to watch out for. ER warnings were given otherwise. Motrin and Tylenol can use for discomfort.
[2018-04-27 16:15] VITALS: TEMP 98; O2SAT 100
== END 2018-04-27 16:08 | disposition home or self-care (01) ==
LOC: ER 15:14
DX: S61.211A Laceration without foreign body of left index finger without damage to nail, initial encounter (principal); K21.9 Gastro-esophageal reflux disease without esophagitis; Z87.891 Personal history of nicotine dependence; W27.8XXA Contact with other nonpowered hand tool, initial encounter; Y92.69 Other specified industrial and construction area as the place of occurrence of the external cause; Y99.0 Civilian activity done for income or pay

== ENCOUNTER 2018-08-04 10:31 | Emergency (ER) | payer SELFPAY ==
[2018-08-04] MEDS ORDERED: TETANUS,DIPHTHERIA,PERTUSSIS 1 EA SYG IM ONE (10:43)
[2018-08-04 10:49] VITALS: TEMP 99.7; O2SAT 98
--- NOTE | 2018-08-04 10:57 | RAD ---
3 views of the left third digit Indication: Smashed finger Comparison: Left second digit March 06, 2011 Impression: Subtle millimetric radiopaque densities project along the distal aspects of the third digit nailbed. No fracture or malalignment of the third digit identified. Age-indeterminate sagittal fracture of the tuft of the second distal phalanx. Millimetric foreign body projects along the radial margin of the second middle phalanx. Electronically signed by: Maco Mccurdy MD 08/04/2018 10:54 AM [facility]
[2018-08-04] MEDS ORDERED: LIDOCAINE 1% 10 ML VIAL INJ ONE (11:03)
[2018-08-04] MEDS ORDERED: HYDROcodone 5MG/APAP 325MG 1 EA TAB PO ONE (11:04)
--- NOTE | 2018-08-04 11:08 | ED.PDOC ---
History of Present Illness - General Chief Complaint: Upper Extremity Injury Stated Complaint: L 3rd digit finger smashed Time Seen by Provider: 08/04/18 10:42 Source: patient Exam Limitations: no limitations - History of Present Illness Initial Comments: L MIDDLE FINGER, DISTAL PHALANX. PT WAS LIFTING AN ITEM OUTSIDE AND THE FINGER GOT SMASHED BETWEEN A ROCK AND PLYWOOD. THROBBING PAIN. TETANUS IN 2014. Occurred: just prior to arrival Pain - Upper Extremity: moderate: Hand, left Method of Injury: direct blow Improving Factors: nothing Worsening Factors: movement Allergies/Adverse Reactions: Allergies NO KNOWN ALLERGY Allergy (Verified 01/15/18 03:05) Home Medications: Ambulatory Orders SILVER SULFADIAZINE 1 % 25gm [Silvadene Cream 25gm] 25 gm TOP BID 14 Days #1 tube 01/15/18 Tramadol HCl 50 mg PO TID PRN #10 tab 01/15/18 Sulfa/Trimeth 800/160 (Ds) Tab [Bactrim DS Tab] 1 ea PO DAILY #5 tab 04/27/18 Review of Systems - Review of Systems Constitutional: Denies: chills, diaphoresis EENTM: States: no symptoms reported Respiratory: States: no symptoms reported Cardiology: States: no symptoms reported Gastrointestinal/Abdominal: States: no symptoms reported Genitourinary: States: no symptoms reported Musculoskeletal: States: no symptoms reported, other - PAIN IN DISTAL PHALANX BUT NOT IN DIP JOINT. Skin: States: see HPI, lesions Neurological: States: no symptoms reported Endocrine: States: no symptoms reported Hematologic/Lymphatic: States: no symptoms reported All other Systems: Reviewed and Negative Past Medical History (General) - Patient Medical History Hx Seizures: Yes - 1.5 yrs ago said to be caused by maoi medication Hx Stroke: No Hx Dementia: No Hx Asthma: No Hx of COPD: No Hx Cardiac Disorders: No Hx Congestive Heart Failure: No Hx Pacemaker: No Hx Hypertension: No Hx Thyroid Disease: No Hx Diabetes: No Hx Gastroesophageal Reflux: Yes Hx Renal Disease: No Hx Cancer: No Hx of HIV: No Hx Hepatitis C: No Hx MRSA: No Surgical History: appendectomy - Vaccination History Hx Tetanus, Diphtheria Vaccination: Yes - 2014 Hx Influenza Vaccination: Yes Hx Pneumococcal Vaccination: No - Social History Hx Tobacco Use: Yes Hx Chewing Tobacco Use: No Hx Alcohol Use: No Hx Substance Use: Yes - [facility] Hx Substance Use Treatment: No Hx Depression: No Hx Physical Abuse: No Hx Emotional Abuse: No Hx Suspected Abuse: No - Female History Patient : No Family Medical History - Family History Mother Family History: No Known Physical Exam - Physical Exam General Appearance: Alert, Well Hydrated Eyes, Ears, Nose, Throat Exam: PERRL/EOMI, normal ENT inspection Neck: non-tender, full range of motion Cardiovascular/Respiratory: regular rate, rhythm, no M/R/G Abdominal Exam: non-tender, no organomegaly Back Exam: normal inspection, no CVA tenderness Shoulder Exam: normal inspection, normal ROM Wrist Exam: normal inspection, normal ROM Hand Exam: laceration Neuro/Tendon: normal sensation, normal motor functions, normal tendon functions, responds to pain, no evidence tendon injury Mental Status: alert, oriented x 3 Skin Exam: other - L MIDDLE FINGER, DISTAL PHALYNX - NAIL UNAFFECTED. PALMAR SURFACE, SKIN IS AVULSED/SKIN TEAR. Progress - Results/Orders Results/Orders: xray - radiopaque FB in distal aspect. Procedures - Laceration/Wound Repair Left Volar Finger Wound Length (cm): 3 Wound's Depth, Shape: superficial, irregular - avulsed skin Wound Explored: foreign body removed - Milimetric metallic shaving seen on x-ray was removed from skin surface. Irrigated w/ Saline (cc's): 250 Betadine Prep?: Yes Anesthesia: 1% Lidocaine - ring block Volume Anesthetic (cc's): 6 Wound Debrided: moderate - Irregularly avulsed skin was removed with sharp scissors. Wound repair was not indicated as skin was avulsed. Sterile Dressing Applied?: Yes Departure - Departure Clinical Impression: Finger pain, left Avulsion of skin of finger Qualifiers: Encounter type: initial encounter Qualified Code(s): S61.209A - Unspecified open wound of unspecified finger without damage to nail, initial encounter Disposition: Discharge to Home or Self Care Condition: Good Departure Forms: ED Discharge - Pt. Copy, Patient Portal Self Enrollment Instructions: Wound Care (DC) Diet: resume usual diet Activity: increase activity as tolerated Referrals: Juan Carlos Ayala MD [Primary Care Provider] - 1-2 Weeks Home Medications: Ambulatory Orders SILVER SULFADIAZINE 1 % 25gm [Silvadene Cream 25gm] 25 gm TOP BID 14 Days #1 tube 01/15/18 Tramadol HCl 50 mg PO TID PRN #10 tab 01/15/18 Sulfa/Trimeth 800/160 (Ds) Tab [Bactrim DS Tab] 1 ea PO DAILY #5 tab 04/27/18 Additional Instructions: Please leave the bandage on until tomorrow morning. Then twice per day, cleanse the skin with soapy water, apply antibiotic ointment, and cover with a bandaid.
[2018-08-04] MEDS ORDERED: NEOMYCIN-BACITRACIN-POLYMYXIN 0.9 GM UD TOP ONE (11:45)
[2018-08-04 12:28] VITALS: BP 123/79
== END 2018-08-04 12:18 | disposition home or self-care (01) ==
LOC: ER 10:31
DX: S61.223A Laceration with foreign body of left middle finger without damage to nail, initial encounter (principal); S67.193A Crushing injury of left middle finger, initial encounter; K21.9 Gastro-esophageal reflux disease without esophagitis; Z87.891 Personal history of nicotine dependence; W23.0XXA Caught, crushed, jammed, or pinched between moving objects, initial encounter; Y93.89 Activity, other specified; Y92.89 Other specified places as the place of occurrence of the external cause

== ENCOUNTER 2020-02-05 11:14 | Emergency (ER) | payer SELFPAY ==
[2020-02-05] MEDS ORDERED: NITROGLYCERIN 0.4 MG 25 EA TAB SL ONE ×2 (11:19→11:23)
[2020-02-05] MEDS ORDERED: SODIUM CHLORIDE 0.9% 1000ML 1,000 ML IVS ONE (11:30)
[2020-02-05] MEDS ORDERED: ALUM & MAG HYDROX-SIMETHICONE 30 ML, LIDOCAINE VISCOUS 2% 15 ML PO ONE ×2 (11:30)
--- NOTE | 2020-02-05 11:41 | RAD ---
Exam(s): XR CHEST 1 VIEW: 02/05/2020 11:22 AM CDT Indication: chest pain, meth abuse MAIN Comparison Study Date: None Technique: AP chest radiograph. Findings: The lungs are clear. No airspace abnormality is identified. No pleural effusion or pneumothorax. Heart size is normal. Normal mediastinal contours. No bone abnormality is identified. IMPRESSION: Normal. Electronically signed by: Elpidio Sanz MD 02/05/2020 11:39 AM CDT
[2020-02-05] MEDS ORDERED: PANTOPRAZOLE SODIUM IV 40 MG VIAL IV ONE (11:52)
[2020-02-05] MEDS ORDERED: POTASSIUM CHLORIDE ELIXIR 20 MEQ/15 ML UD PO ONE (11:56)
[2020-02-05] MEDS ORDERED: POTASSIUM CHLORIDE INJ 40 MEQ 40 MEQ in SODIUM CHLORIDE 0.9% 250ML 250 ML IVPB ONE (11:57)
[2020-02-05] MEDS ORDERED: KCL 40MEQ/NS 1,000 ML IVS ONE (12:10)
--- NOTE | 2020-02-05 17:56 | ED.PDOC ---
History of Present Illness - General Chief Complaint: Chest Pain/[place] Stated Complaint: Chest pain, diaphoresis, tingling all over Time Seen by Provider: 02/05/20 11:16 Source: patient Exam Limitations: no limitations - History of Present Illness Initial Comments: The patient is a 29-year-old male presented emergency room secondary to the onset of chest pain about 30 minutes prior to arrival. The patient admits to shooting up methamphetamine about 4 hours ago. He reports that he has not slept in several days. The patient is drowsy but at the same time agitated. He reports the pain at about a 7 out of 10. It is not worse with movement. No syncope. No shortness of breath. No nausea or vomiting. No fever. The patient is obviously intoxicated. Timing/Duration: 1/2 hour Severity: moderate Improving Factors: nothing Worsening Factors: nothing Associated Symptoms: chest pain Allergies/Adverse Reactions: Allergies NO KNOWN ALLERGY Allergy (Verified 02/05/20 11:31) Review of Systems - Review of Systems Constitutional: States: malaise EENTM: States: no symptoms reported Respiratory: States: no symptoms reported Cardiology: States: chest pain Gastrointestinal/Abdominal: States: no symptoms reported Genitourinary: States: no symptoms reported Musculoskeletal: States: no symptoms reported Skin: States: no symptoms reported Neurological: States: see HPI Endocrine: States: no symptoms reported All other Systems: No Change from Baseline Past Medical History (General) - Patient Medical History Hx Seizures: Yes - 1.5 yrs ago said to be caused by maoi medication Hx Stroke: No Hx Dementia: No Hx Asthma: No Hx of COPD: No Hx Cardiac Disorders: No Hx Congestive Heart Failure: No Hx Pacemaker: No Hx Hypertension: No Hx Thyroid Disease: No Hx Diabetes: No Hx Gastroesophageal Reflux: Yes Hx Renal Disease: No Hx Cancer: No Hx of HIV: No Hx Hepatitis C: No Hx MRSA: No - Vaccination History Hx Tetanus, Diphtheria Vaccination: Yes - 2015 Hx Influenza Vaccination: No Hx Pneumococcal Vaccination: No - Social History Hx Tobacco Use: Yes Hx Chewing Tobacco Use: No Hx Alcohol Use: No Hx Substance Use: Yes Hx Substance Use Treatment: No Hx Depression: No Hx Physical Abuse: No Hx Emotional Abuse: No Hx Suspected Abuse: No - Female History Patient is a Female of Child Bearing Age (10 -59 yrs old): No Patient : No Family Medical History - Family History Mother Family History: No Known Physical Exam - Physical Exam General Appearance: Other - The patient is drowsy but arousable. When he is aroused she is quite agitated. 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, no motor/sensory deficits, oriented x 3, other - Obviously intoxicated Skin Exam: normal color Comments: Vital Signs (72 hours) 02/05/20 02/05/20 02/05/20 11:15 11:24 12:15 Temperature 98.4 F Pulse Rate [ 105 H 105 H 90 Pulse ox] Respiratory 20 20 16 Rate Blood Pressure 137/81 109/92 [L arm] O2 Sat by Pulse 100 99 Oximetry 02/05/20 02/05/20 02/05/20 13:00 14:00 15:05 Temperature Pulse Rate [ 93 H 90 89 Pulse ox] Respiratory 24 24 22 Rate Blood Pressure 125/82 127/81 114/69 [L arm] O2 Sat by Pulse 99 99 97 Oximetry Progress - Progress Progress: 02/05/20 17:57 The patient is a 29-year-old male presented emergency room with chest pain related to methamphetamine abuse. The patient received a dose of Ativan for the agitation as well as a liter of IV fluids and treatment of dehydration. He additionally received IV and oral potassium for hypokalemia. He received a dose of nitroglycerin upon arrival. These measures did significantly alleviate the pain. He obviously needs to avoid methamphetamine use in the future. He does have the potential of causing a heart attack essentially. ER warnings are given. Keep follow-up with primary care doctor. He does need to have a repeat potassium level checked next week with his primary care doctor. felix dunn [phone] - Results/Orders Results/Orders: Laboratory Tests 08/02/1602/05/20 02/05/20 11:28 11:28 11:28 WBC 10.7 RBC 4.86 Hgb 14.0 Hct 40.8 L MCV 84.0 MCH 28.9 MCHC 34.4 RDW 14.1 Plt Count 246 MPV 8.0 Absolute Neuts (auto) 7.70 H Absolute Lymphs (auto) 2.10 Absolute Monos (auto) 0.80 Absolute Eos (auto) 0.10 Absolute Basos (auto) 0.00 Neutrophils % 72.1 Lymphocytes % 19.7 L Monocytes % 7.2 Eosinophils % 0.5 L Basophils % 0.5 PT 9.8 INR < 1.00 PTT (SP) 25.4 Sodium 137 Potassium 2.8 L Chloride 103 Carbon Dioxide 23 Anion Gap 13.8 BUN 8 Creatinine 1.00 BUN/Creatinine Ratio 8.0 L Random Glucose 96 Serum Osmolality 272.0 L Calcium 9.2 Magnesium 2.3 Total Bilirubin 1.7 H AST 26 ALT 22 Alkaline Phosphatase 76 Creatine Kinase 262 H* CK-MB (CK-2) 1.8 CK-MB (CK-2) % Not Reportable Troponin I < 0.02 B-Natriuretic Peptide < 15.0 Serum Total Protein 7.9 Albumin 4.6 Globulin 3.3 Albumin/Globulin Ratio 1.4 Amylase 16 L Lipase 26 02/05/20 02/05/20 14:29 17:28 WBC RBC Hgb Hct MCV MCH MCHC RDW Plt Count MPV Absolute Neuts (auto) Absolute Lymphs (auto) Absolute Monos (auto) Absolute Eos (auto) Absolute Basos (auto) Neutrophils % Lymphocytes % Monocytes % Eosinophils % Basophils % PT INR PTT (SP) Sodium Potassium Chloride Carbon Dioxide Anion Gap BUN Creatinine BUN/Creatinine Ratio Random Glucose Serum Osmolality Calcium Magnesium Total Bilirubin AST ALT Alkaline Phosphatase Creatine Kinase 188 H 172 CK-MB (CK-2) 1.2 1.2 CK-MB (CK-2) % Not Reportable Not Reportable Troponin I < 0.02 < 0.02 B-Natriuretic Peptide Serum Total Protein Albumin Globulin Albumin/Globulin Ratio Amylase Lipase EKG shows normal axis. Normal sinus rhythm or rather sinus tachycardia at 106 bpm. Normal R wave progression. No ST segment or T wave changes indicative of acute ischemia. Borderline prolonged QT interval. Chest x-ray is essentially clear. No infiltrates or widening of the mediastinum. Departure - Departure Clinical Impression: Hypokalemia, Methamphetamine abuse Chest pain Qualifiers: Chest pain type: other chest pain Qualified Code(s): R07.89 - Other chest pain; R07.8 - Other chest pain Disposition: Discharge to Home or Self Care Condition: Fair Departure Forms: ED Discharge - Pt. Copy, Patient Portal Self Enrollment Instructions: DI for Chest Pain, Drug Abuse and Drug Addiction (DC), Hypokalemia (DC) Diet: regular diet Activity: increase activity as tolerated Referrals: Juan Carlos Dunn MD [Primary Care Provider] - 1-2 Weeks Additional Instructions: The patient is a 29-year-old male presented emergency room with chest pain related to methamphetamine abuse. The patient received a dose of Ativan for the agitation as well as a liter of IV fluids and treatment of dehydration. He additionally received IV and oral potassium for hypokalemia. He received a dose of nitroglycerin upon arrival. These measures did significantly alleviate the pain. He obviously needs to avoid methamphetamine use in the future. He does have the potential of causing a heart attack essentially. ER warnings are given. Keep follow-up with primary care doctor. He does need to have a repeat potassium level checked next week with his primary care doctor.
[2020-02-05 18:12] VITALS: BP 112/81; TEMP 97.6; O2SAT 100
== END 2020-02-05 18:11 | disposition home or self-care (01) ==
LOC: ER 11:14
DX: R07.89 Other chest pain (principal); E87.6 Hypokalemia; F15.10 Other stimulant abuse, uncomplicated; K21.9 Gastro-esophageal reflux disease without esophagitis; Z20.828 Contact with and (suspected) exposure to other viral communicable diseases; Z87.891 Personal history of nicotine dependence
CPT/HCPCS: 36415; 71045; 80053; 82150; 82550; 82553; 83690; 83735; 83880; 84484; 85025; 85610; 85730; 87635; 93005; J2060; J3480; J7030

== ENCOUNTER 2020-02-07 13:38 | Emergency (ER) | payer SELFPAY ==
[2020-02-07] MEDS ORDERED: SODIUM CHLORIDE 0.9% 1000ML 1,000 ML IVS ONE (13:41)
[2020-02-07] MEDS ORDERED: SODIUM CHLORIDE 0.9% (FLUSH) 10 ML SYG IV PRN (13:41)
--- NOTE | 2020-02-07 13:42 | ED.PDOC ---
History of Present Illness - General Chief Complaint: Chest Pain/FL Stated Complaint: chest pain Time Seen by Provider: 02/07/20 13:40 Source: patient - History of Present Illness Initial Comments: 29-year-old male with past medical history of IV meth abuse who presents with chief complaint of chest pain. Onset 3 to 4 days ago after using IV meth x1 at that time reports coming and going since then, currently rates as 6/10 severity, located to left chest wall with radiation to center and right chest, worse in the heat, not worse with palpation/exertion/deep breathing, no medications taken for relief. Also reports symptoms of dyspnea, generalized weakness, intermittent nausea, and sore throat for several days with redness to the back of his throat. He states that he was a former IV meth user and had quit for quite a while and just recently relapsed 3 days ago. Denies any further use since then. He was seen in the ED 3 days ago also for chest pain and his cardiac work-up was normal so he was discharged home. He reports he has shared needles in the past but has never been tested for HIV. Allergies/Adverse Reactions: Allergies NO KNOWN ALLERGY Allergy (Verified 02/07/20 14:08) Review of Systems - Review of Systems Review of Systems: 02/07/20 14:08 as per HPI All other Systems: Reviewed and Negative Past Medical History (General) - Patient Medical History Hx Seizures: Yes - 1.5 yrs ago said to be caused by maoi medication Hx Stroke: No Hx Dementia: No Hx Asthma: No Hx of COPD: No Hx Cardiac Disorders: No Hx Congestive Heart Failure: No Hx Pacemaker: No Hx Hypertension: No Hx Thyroid Disease: No Hx Diabetes: No Hx Gastroesophageal Reflux: Yes Hx Renal Disease: No Hx Cancer: No Hx of HIV: No Hx Hepatitis C: No Hx MRSA: No - Vaccination History Hx Tetanus, Diphtheria Vaccination: Yes - 2015 Hx Influenza Vaccination: No Hx Pneumococcal Vaccination: No - Social History Hx Tobacco Use: Yes Hx Chewing Tobacco Use: No Hx Alcohol Use: No Hx Substance Use: Yes Hx Substance Use Treatment: No Hx Depression: No Hx Physical Abuse: No Hx Emotional Abuse: No Hx Suspected Abuse: No - Female History Patient : No Family Medical History - Family History Mother Family History: No Known Physical Exam - Physical Exam General Appearance: Alert, No apparent distress Eye Exam: bilateral normal Ears, Nose, Throat: pharyngeal erythema, tonsillar exudate Neck: non-tender, full range of motion, supple, normal inspection Respiratory: chest non-tender, lungs clear, normal breath sounds, no respiratory distress, no accessory muscle use Cardiovascular/Chest: normal peripheral pulses, regular rate, rhythm, no edema, no gallop, no JVD, no murmur Peripheral Pulses: radial,right: 2+, radial,left: 2+ Gastrointestinal/Abdominal: non tender, soft, no organomegaly Back Exam: normal inspection, no CVA tenderness, no vertebral tenderness Extremity: normal range of motion, non-tender, normal inspection, no pedal edema, no calf tenderness, normal capillary refill 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 Consider also pericarditis, MSK, anxiety, ACS, PE, GERD, HIV, endocarditis, other -pt stable, afebrile -obtain cardiac work-up, HIV screen, strep testing -place PIV, 1 L NS bolus, Zofran 4 mg IV 02/07/20 16:04 -Patient has remained stable in ED. Lab work is largely unremarkable including troponin x2, d-dimer, serum WBC count, etc. Strep test is negative. Rapid HIV is a send-out and still pending. Serum potassium level was slightly low at 3.2 and was replaced orally. -Discussed all findings with patient. Suspect that his chest pain is largely related to his methamphetamine abuse and also possibly musculoskeletal in nature. I advised that he remain well-hydrated and quit abusing drugs and smoking cigarettes. Discussed at length how deadly IV drug abuse can be to his body. Pt became upset with me stating "I came here with chest pain and y'all did absolutely nothing. I know what meth does to my body and this is not from meth." He stated he was still hurting. Thus, I tried to discuss with him some more that his chest pain is likely largely related to drug use which is causing quite a strain on his chest and heart and lungs. He became more irate with me and the nursing staff and threatened to pull his IV out himself. I had to warn him I would call security if he did not calm down and allow the nurses to remove the IV instead. 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 Discharged AMArielle. Dalton Martinez MD Billing #[id number] 02/07/20 13:41 IV Care:Saline Lock per Protoc QSHIFT Telemetry .ONCE Sodium Chloride 0.9% (Flush) [Saline Flush Syringe] 10 ml IV PRN PRN Pulse Oximetry Assessment DAILY URINALYSIS Stat 02/07/20 13:45 HIV-1/2 AB W/REFLEX EIA Stat EKG STAT 02/07/20 14:20 STREP A SCREEN CULTURE Stat 02/07/20 15:30 EKG STAT 02/08/20 09:00 Pulse Ox Daily Laboratory Results - last 24 hr 02/07/20 02/07/20 02/07/20 13:45 13:45 13:45 WBC 6.6 RBC 4.51 L Hgb 13.2 L Hct 38.3 L MCV 84.9 MCH 29.3 MCHC 34.5 RDW 13.9 Plt Count 219 MPV 8.2 Absolute Neuts (auto) 4.40 Absolute Lymphs (auto) 1.50 Absolute Monos (auto) 0.50 Absolute Eos (auto) 0.10 Absolute Basos (auto) 0.00 Neutrophils % 66.5 Lymphocytes % 22.6 Monocytes % 8.1 Eosinophils % 2.2 Basophils % 0.6 D-Dimer, Quantitative Sodium 135 Potassium 3.2 L Chloride 103 Carbon Dioxide 23 Anion Gap 12.2 BUN 8 Creatinine 0.73 BUN/Creatinine Ratio 11.0 Random Glucose 99 Serum Osmolality 268.5 L Calcium 8.5 Total Bilirubin 0.6 AST 26 ALT 23 Alkaline Phosphatase 64 Troponin I < 0.02 B-Natriuretic Peptide 24.0 Serum Total Protein 6.8 Albumin 3.9 Globulin 2.9 Albumin/Globulin Ratio 1.3 HIV 1&2 Antibody Rapid Group A Strep Rapid 02/07/20 02/07/20 02/07/20 13:45 13:45 14:20 WBC RBC Hgb Hct MCV MCH MCHC RDW Plt Count MPV Absolute Neuts (auto) Absolute Lymphs (auto) Absolute Monos (auto) Absolute Eos (auto) Absolute Basos (auto) Neutrophils % Lymphocytes % Monocytes % Eosinophils % Basophils % D-Dimer, Quantitative 230.0 Sodium Potassium Chloride Carbon Dioxide Anion Gap BUN Creatinine BUN/Creatinine Ratio Random Glucose Serum Osmolality Calcium Total Bilirubin AST ALT Alkaline Phosphatase Troponin I B-Natriuretic Peptide Serum Total Protein Albumin Globulin Albumin/Globulin Ratio HIV 1&2 Antibody Rapid Cancelled Group A Strep Rapid Negative 02/07/20 15:33 WBC RBC Hgb Hct MCV MCH MCHC RDW Plt Count MPV Absolute Neuts (auto) Absolute Lymphs (auto) Absolute Monos (auto) Absolute Eos (auto) Absolute Basos (auto) Neutrophils % Lymphocytes % Monocytes % Eosinophils % Basophils % D-Dimer, Quantitative Sodium Potassium Chloride Carbon Dioxide Anion Gap BUN Creatinine BUN/Creatinine Ratio Random Glucose Serum Osmolality Calcium Total Bilirubin AST ALT Alkaline Phosphatase Troponin I < 0.02 B-Natriuretic Peptide Serum Total Protein Albumin Globulin Albumin/Globulin Ratio HIV 1&2 Antibody Rapid Group A Strep Rapid - EKG/XRAY/CT EKG: Sinus - NSR, HR 90, no ST elevs or q waves noted, axis normal, intervals normal, compared to 02/05/2020 EKG sinus tach now resolved XRAY: chest - no acute processes per my read - Additional EKG/XRAY/Consults EKG #2: Unchanged from - initial Departure - Departure Clinical Impression: Methamphetamine abuse, Musculoskeletal chest pain Time of Disposition: 16:02 Disposition: Left Against Medical Advice Condition: Fair Departure Forms: ED Discharge - Pt. Copy, Patient Portal Self Enrollment Instructions: DI for Chest Pain, Chest Pain That Is Not Caused by the Heart (DC), Drug Abuse and Drug Addiction (DC) Diet: resume usual diet Activity: increase activity as tolerated Referrals: Juan Carlos Ayala MD [Primary Care Provider] - 1-2 Weeks Additional Instructions: Remain well-hydrated and gradually advance your diet and activity level as tolerated. I strongly suggest that you quit using meth and any other illicit drugs and IV drugs which can be very dangerous to your body and can potentially cause immediate or serious damage to your heart. I also strongly advised that you quit smoking, which can also be very detrimental to your health and cause permanent damage to your heart and lungs as well as increase your risk of cancer. Return to the ED if you develop any new or concerning symptoms such as worsening chest pain or different chest pain, worsening shortness of breath, fevers, chills, etc. Follow-up with your primary care physician is recommended in the next 1 to 2 weeks for repeat evaluation or sooner as needed.
--- NOTE | 2020-02-07 13:56 | RAD ---
EXAM DESCRIPTION: Chest,1 View x-ray CLINICAL HISTORY: 29 years Male, chest pain COMPARISON: 02/05/2020 IMPRESSION: Heart size and pulmonary vascularity are within normal limits. There is no airspace consolidation, pleural effusion, or pneumothorax. No acute osseous abnormality. Electronically signed by: Ruiz Dawkins MD 02/07/2020 1:54 PM CDT
[2020-02-07] MEDS ORDERED: ONDANSETRON INJ 4 MG/2 ML VIAL IV ONE (14:04)
[2020-02-07] MEDS ORDERED: POTASSIUM CHLORIDE 20 MEQ TAB PO ONE (15:23)
[2020-02-07] MEDS ORDERED: KETOROLAC TROMETHAMINE INJ 30 MG/ML VIAL IV ONE (15:24)
[2020-02-07 16:47] VITALS: BP 128/79; TEMP 98.2; O2SAT 98
== END 2020-02-07 16:20 | disposition left against medical advice (07) ==
LOC: ER 13:38
DX: R07.89 Other chest pain (principal); F15.10 Other stimulant abuse, uncomplicated; R00.0 Tachycardia, unspecified; R06.00 Dyspnea, unspecified; J02.9 Acute pharyngitis, unspecified; R11.0 Nausea; R53.1 Weakness; F17.200 Nicotine dependence, unspecified, uncomplicated; K21.9 Gastro-esophageal reflux disease without esophagitis; Z53.29 Procedure and treatment not carried out because of patient's decision for other reasons
CPT/HCPCS: 36415; 71045; 80053; 81001; 83880; 84484; 85025; 85379; 86701; 87070; 87880; 93005; A4216; J1885; J2405; J7030

== ENCOUNTER → 2020-08-04 | Outpatient (CLI) | payer OTHER | LOC: YCFC.O 13:04 | PROVIDERS: ATTEND Nurse Practitioner | DX: Z20.828 Contact with and (suspected) exposure to other viral communicable diseases (principal) ==